=== PATIENT | female | born 1935 | race Hispanic/Latino ===

== ENCOUNTER 2020-02-20 18:55 | Emergency (ER) | payer OTHER ==
--- OUTSIDE RECORDS SUMMARY | 2020-02-20 19:45 | XMS REPORT | Clinical Summary ---
:1935 Author Organization [facility] Address [address] [place] [address] Care Team Providers Name Role Phone Enma Woody Primary Care Provider Allergies Active Allergy Reactions Severity Noted Date Comments Iodine Itching Medium 09/16/2016 Extreme itching and swelling to the eyes Penicillins Hives Medium 09/16/2016 Itching; hives (neck, arms, face) Medications Medication Sig Dispensed Refills Start Date End Date Status metoprolol tartrate Take 100 mg by 0 Active (LOPRESSOR) 100 mg mouth 2 (two) tablet times a day. alendronate (FOSAMAX) Take 70 mg by 0 Active 70 MG tablet mouth every 7 days. Take in the morning with a full glass of water, on an empty stomach, and do not take anything else by mouth or lie down for the next 30 min. pramipexole (MIRAPEX) Take 0.25 mg by 0 Active 0.25 MG tablet mouth daily. gabapentin (NEURONTIN) Take 100 mg by 0 Active 100 mg capsule mouth 3 (three) times a day. traMADol (ULTRAM) 50 Take 50 mg by 0 Active mg tablet mouth every 8 (eight) hours as needed for moderate pain. dexlansoprazole Take 60 mg by 0 Active (DEXILANT) 60 mg mouth daily. capsule ZENPEP 40,000-126,000- THERESE 8 (OCHO) 5 04/27/2019 Active 168,000 unit C?PSULAS POR LA capsule,delayed BOCA CADA RUSSELL release(DR/EC) losartan-hydrochloroth Take 1 tablet 1 05/04/2019 Active iazide (HYZAAR) by mouth daily. 50-12.5 mg per tablet hydrocodone/acetaminop Take by mouth. 0 Active hen (VICODIN ORAL) fenofibrate micronized Take 130 mg by 0 Active (ANTARA) 130 MG mouth daily capsule before breakfast. diltiazem CD (CardIZEM Take 1 capsule 90 capsule 3 05/31/2019 05/30/2020 Active CD) 120 MG 24 hr (120 mg total) capsuleIndications: by mouth daily. Essential hypertension Additional Information Patient taking differently: 60 mg oral daily, Reported on 10/19/2019 1:15 PM magnesium oxide 400 mg Take 400 mg by 0 Active magnesium tablet mouth daily. clopidogreL (PLAVIX) 75 Take 75 mg by 0 Active mg tablet mouth daily. diltiazem (CardIZEM) 60 Take 60 mg by 0 Discontinued MG tablet mouth daily. 19 (Formul funmi change) clopidogrel (PLAVIX) 75 Take 75 mg by 0 Discontinued mg tablet mouth daily. 19 mometasone (NASONEX) 50 1 spray into 0 01/31 Discontinued mcg/actuation nasal each nostril 20 (Discontinued by spray daily. another cl inician) folic acid (FOLVITE) 1 Take 1 mg by 0 01/31 Discontinued MG tablet mouth daily. 20 (Discon tinued by another cl inician) predniSONE (DELTASONE) Take 1 tablet 2 tablet 0 06/07/20 50 mg tablet (50 mg total) 19 19 by mouth daily for 2 days. Take one tablet tonight and one tablet the day of exam diphenhydrAMINE Take 1 capsule 2 capsule 0 06/07/20 06/09/20 (BENADRYL) 50 MG (50 mg total) 19 19 capsule by mouth daily for 2 days. Take one capsule tonight and one capsule the day of exam Active Problems Problem Noted Date Malignant neoplasm of right lung 10/19/2019 Coronary artery disease involving [place] coronary galileo ry of [place] heart 09/20/2019 without angina pectoris Abdominal aortic aneurysm (AAA) without rupture 2018 Last Assessment & Plan: Patient with abdominal aortic aneurysm. The patient and I went over the anatomy related to this, risk factors, warning signs, and potential for rupture at any size. Discussed with the patient our gene ral practice to wait until 5.5 cm and th e reasoning behind that. Endovascular and open abdominal aortic aneurysm repair both discussed, described, and used a visual posters to help clarify. Major morb idity and mortality were both discussed. Open aortic complications including injury to nearby structures, sexual dysfunction, later abdominal surgical complications were all discussed. Endovascular co mplications including endoleak, persiste nt expansion or rupture, need for lifelong surveillance, and access site issues were discussed as well. We will contact her oncologist to determ ine the prognosis of her cancerous growth. Essential hypertension 09/16/2016 Routine adult health maintenance 09/16/2016 Encounters Date Type Specialty Care Team Description 10/19/2019 Hospital Encounter Radiology Felton Oliva MD 10/19/2019 Office Visit Cardiovascular Felton Oliva Abdominal ao rtic MD Michael aneurysm (AAA) without rupture (HCC) (Primary Dx) 10/14/2019 Telephone Cardiovascular Levy Araujo MD 10/13/2019 Orders Only Cardiothoracic ProviderRoman MD 09/29/2019 Hospital Encounter Radiology Antoine Vyas MD 09/29/2019 Office Visit Cardiothoracic Antoine Vyas Malignant torsten plasm Surgery MD Ryanne of lower lobe o f right lung (HCC ) (Primary Dx) 09/29/2019 Telephone Cardiovascular Felton Oliva MD 09/29/2019 Telephone [employer] Josep Ortiz 09/29/2019 Oncology Oncology Hair, Padilla Daley, MORTEZA 09/28/2019 Orders Only Cardiothoracic Roman Gamble MD 09/27/2019 Telephone Cardiothoracic Sherri Henderson Surgery MA 09/20/2019 Office Visit Cardiology Chandan Cervantes, Abdominal a ortic aneurysm (AAA) without rupture (HCC) (Primary Dx); Essential hyper tension; Coronary artery disease involving [place] coronary artery of [place] heart without angina pectoris 06/15/2019 Office Visit Cardiovascular Felton Oliva Thoracic aor levi Rodriguez MD aneurysm withou t rupture (HCC) (Primary Dx) 06/14/2019 Telephone Cardiology Eddie Singh MA Results (CTA abdomen pelvis) 06/08/2019 Hospital Encounter Radiology Chandan Cervantes, Aneur ysm (HCC); Abdominal aorti c aneurysm (AAA) without rupture (HCC); Essential hyper tension 06/07/2019 Orders Only Cardiology Eddie Singh MA 05/31/2019 Office Visit Cardiology Chandan Cervantes, Abdominal a ortic aneurysm (AAA) without rupture (HCC) (Primary Dx); Aneurysm (HCC); Essential hyper tension after 02/19/2019 Family History Medical History Relation Name Comments Heart disease Brother Heart disease Father Relation Name Status Comments Brother Father Social History Tobacco Use Types Packs/Day Years Used Date Never Smoker Smokeless Tobacco: Never Used Tobacco Cessation: Counseling Given: No Alcohol Use Drinks/Week oz/Week Comments No Sex Assigned at Date Recorded Not on file Job Start Date Occupation Industry Not on file Not on file Not on file Travel History Travel Start Travel End No recent travel history available. Last Filed Vital Signs Vital Sign Reading Time Taken Comments Blood Pressure 161/84 10/19/2019 12:59 PM [employer] Pulse 67 10/19/2019 12:59 PM [employer] Temperature 36.9 C (98.4 F) 10/19/2019 12:59 PM [employer] Respiratory Rate 17 09/29/2019 9:56 AM [employer] Oxygen Saturation - - Inhaled Oxygen Concentration - - Weight 68.7 kg (151 lb 6.4 oz) 10/19/2019 12:59 PM [employer] Height 152.4 cm (5') 10/19/2019 12:59 PM [employer] Body Mass Index 29.57 10/19/2019 12:59 PM [employer] Plan of Treatment Date Type Specialty Care Team Description 03/20/2020 Office Visit Cardiology Chandan Cervantes MD [address] [facility] [address] [place], [place] [address] [phone] Health Maintenance Due Date Last Done Comments SHINGLES VACCINES (#1) 1986 65+ PNEUMOCOCCAL VACCINE (1 of 2 - PCV13) 2001 INFLUENZA VACCINE 04/14/2020 Procedures Procedure Name Priority Date/Time Associated Diagnosis Comme nts MRI HEAD EXTERNAL Routine 2019 5:20 Result s for this STUDY PM [employer] procedure are i n the results section. [id number] Routine 08/02/2019 PULMONARY FUNCTION Routine 07/25/[address] WHOLE BODY Routine 07/14/2019 8:51 Result s for this EXTERNAL STUDY AM CDT procedure are in the results section. PET CT SKULL BASE Routine 07/14/2019 TO MID THIGH [id number] Routine 06/09/2019 CT CARDIAC OVERREAD STAT 06/08/2019 4:30 Aneurysm (H CC) Results for this PM CDT Abdominal aortic procedure a re in aneurysm (AAA) the results without rupture (HCC) section. Essential hypertension CV CTA ABDOMEN STAT 06/08/2019 1:46 Aneurysm (HCC) Results for this PELVIS W CONTRAST PM CDT Abdominal aortic proced ure are in aneurysm (AAA) the results without rupture (HCC) section. Essential hypertension ESTIMATED GFR Routine 06/08/2019 1:01 Results fo r this PM CDT procedure are i n the results section. POC CREATININE Routine 06/08/2019 1:01 Results f or this PM CDT procedure are i n the results section. ECG 12-LEAD Routine 05/31/2019 2:46 Aneurysm (HCC) Results f or this PM CDT procedure are i n the results section. after 02/19/2019 Results MRI Head External Study (2019 5:20 PM [employer]) Specimen Narrative Performed At This exam was not acquired at a [facility] facility and has not been [facility] interpreted by a [facility] Provider. T he exam was imported into our imaging system. Performing Organization Address City/[facility] Phone Number [facility] [address] [place] [address] Miscellaneous Lab Result (08/02/2019)Only the most recent of2 resultswithin the time period is included. Specimen Blood Narrative Performed At This result has an attachment that is no t available. Pulmonary function tests, complete (07/25/2019) Narrative Performed At This result has an attachment that is no t available. PET/CT Whole Body External Study (07/14/2019 8:51 AM CDT) Specimen Narrative Performed At This exam was not acquired at a [facility] facility and has not been [facility] interpreted by a [facility] Provider. T he exam was imported into our imaging system. Performing Organization Address City[facility] Phone Number [facility] [address] [place] [address] PET/CT Skull Base To Mid Thigh (07/14/2019) Narrative Performed At This result has an attachment that is no t available. CT Cardiac Overread (06/08/2019 4:30 PM CDT) Specimen Narrative Performed At EXAMINATION: CT CARDIAC OVERREAD [facility] CLINICAL HISTORY: Radiology overread of imaging perfor med in the cardiology department. Only extracardiac structures ar e assessed. I72.9 Aneurysm of unspecified site, I71.4 Abdominal aortic a neurysm without rupture, other TECHNIQUE: Please refer to cardiology note for details on the acquisition technique. COMPARISON: None. FINDINGS: Extracardiac findings: Lungs and airways: A 1.9 cm nodule is present in the r ight lower lobe centered on image 152 of series 10. An ill-defined violeta undglass nodules present in the right upper lobe, centered on image 17, measuring approximately 1.6 cm. There is scattered linear scarring throughout the lung bases. There are extensiv e, multicompartment tracheal diverticula, greatest at the upper thoracic inlet. Pleura: No pleural effusion or pneumotho rax. Mediastinum and lymph nodes: Mildly asymmetric but sub centimeter right hilar lymph nodes are present. Upper abdomen: No suspicious abnormaliti es. Musculoskeletal: There is heterogenous sclerosis and h eight loss of T7 and T9. Height loss without underlying sclerosis of T1 2. Demineralized bones. Please refer to separately dictated cardiology report for cardiac and vascular findings. IMPRESSION: 1.Suspicious 1.9 cm nodule is present in the right low er lobe. Recommend PET/CT, tissue sampling, or short interval (3 month) C T follow-up depending on the clinical scenario and p atient and provider preferences. 2.Indeterminate ill-defined groundglass nodule in the right upper lobe could be inflammatory but requires atten tion at follow-up. 3.Indeterminate mildly asymmetric but subcentimeter ri ght hilar lymph nodes. 4.Heterogenous sclerosis and age-indeterminate height loss of T7 and T9. The underlying sclerosis raises the possibility of the se being pathologic fractures. Consider thoracic spine MRI for further evaluation. 5.Please refer to separately dictated cardiology repor t for vascular findings. Procedure Note Hm Interface, Radiology Results Incoming - 06/13/2019 12:45 PM CDT EXAMINATION: CT CARDIAC OVERREAD CLINICAL HISTORY: Radiology overread of imaging performed in the cardiology department. Only extracardiac structures are assessed. I72.9 Aneurysm of unspecified site, I71.4 Abdominal aortic aneurysm without rupture, other TECHNIQUE: Please refer to cardiology no te for details on the acquisition technique. COMPARISON: None. FINDINGS: Extracardiac findings: Lungs and airways: A 1.9 cm nodule is pr esent in the right lower lobe centered on image 152 of series 10. An ill-defined groundglass nodules present in the right upper lobe, centered on image 17, measuring approximately 1.6 cm. There is scattered linear scarring throughout the lung bases. Ther e are extensive, multicompartment tracheal diverticula, greatest at the upper thoracic inlet. Pleura: No pleural effusion or pneumotho rax. Mediastinum and lymph nodes: Mildly asym metric but subcentimeter right hilar lymph nodes are present. Upper abdomen: No suspicious abnormaliti es. Musculoskeletal: There is heterogenous s clerosis and height loss of T7 and T9. Height loss without underlying sclerosis of T12. Demineralized bones. Please refer to separately dictated card iology report for cardiac and vascular findings. IMPRESSION: 1.Suspicious 1.9 cm nodule is present in the right lower lobe. Recommend PET/CT, tissue sampling, or short interval (3 month) CT follow-up depending on the clinical scenario and patient and provider preferences. 2.Indeterminate ill-defined groundglass nodule in the right upper lobe could be inflammatory but requires attention at follow-up. 3.Indeterminate mildly asymmetric but murillo bcentimeter right hilar lymph nodes. 4.Heterogenous sclerosis and age-indeter minate height loss of T7 and T9. The underlying sclerosis raises the possibility of these being pathologic fractures. Consider thoracic spine MRI for further evaluation. 5.Please refer to separately dictated ca rdiology report for vascular findings. Performing Organization Address City/State/Zipcode Phone Number [facility] [address] [place] [address] Cv cta abdomen pelvis w contrast (06/08/2019 1:46 PM CDT) Specimen Narrative Performed At [facility] CT [address] [place] [address], [facility] [address] [id number] CTA Coron funmi Arteries Report Pat.Name: NATHALIA AGUILAR Pat.ID: [id number] .Date: 06/08/2019 Exam Time: 1:04:00 PM Study Type:CTA Coronary Arteries Height: 62in Weight: 155lb BSA: 1.72 m2 Age: 2 1935,83Y Sex: FEMALE BP: 181/75 HR: 59 bpm Nuclear Tech:ANGELINE Campa/MUSA Kahn Pat. Stat.:Outpatient CPT - 4: CCTA w Thoracic Aorta (Non Congenital) [id number], CTA ABD/PELV W/WO [id number], CTA Chest non coron funmi [id number] Nuclear Event ID:[id number] Order ID: [id number] Reason for Study:CAD, AAA Procedures: CT Prospective (intervals), CT Flash mode Race: SUMMARY: Technique: IV contrast was administered and sequential 0.[address] cuts were obtained through the chest using th e Siemens Somatom Force CT scanner. Image post-processing consistin g of multiplanar and 3D reconstructions were performed using the [employer] workstation. Interactive image viewing, volumetric display and analysis were also performed. CTA RESULTS Left Main: A normal sized artery which arises chris lly from the left sinus of Valsalva and divides into the left anter ior descending and circumflex coronary arteries. Mild calcified athero sclerotic plaque is present but without significant stenosis. Left anterior descending (LAD): A normal sized artery which wraps around the apex and gives off one diagonal branch. Mild calcified atherosc lerotic plaque is present in the proximal and mid segments but withou t significant stenosis. The first diagonal is a bifurcating galileo ry which has no significant atherosclerotic plaque present. Left circumflex: A small non-dominant artery which arises normally from the left main and gives off one large major obtuse mar ginal artery before terminating in the AV groove. Mild calci fied atherosclerotic plaque is present in the proximal segment with but without significant stenosis. The first obtuse marginal is a large art dimitri which has mild calcified atherosclerotic plaque present but no si gnificant stenosis. Right coronary artery: A normal sized dominant artery which tristan ses normally from the right sinus of Valsalva and gives off several right ventricular branches, the posterior descending artery and the posterolateral artery. Moderate calcified and non-calcified ath erosclerotic plaque is present in the proximal, mid and distal segments with mild to moderate (25-50%) stenosis in the mid segment. The posterior descending artery which pillai s mild non-calcified atherosclerotic plaque present but no si gnificant stenosis. The posterolateral is a trifurcating art dimitri which has mild calcified and non-calcified atherosclerotic plaque present but no significant stenosis. Ramus: None. Stents: None. Bypass Grafts: None. Pulmonary Arteries: Normal pulmonary artery sizes with no pr oximal thrombus identified. Left Atrial and Pulmonary Vein Dimension s: Left atrial size (A-P diameter) 3.8 cm. Normal PV anatomy There is no evidence of the left atrial appendage clot. Left Ventricular Valve Morphology/Functi on: There is mild mitral annular calcificati on. Thoracic Aortic Dimensions: No aortic dissection is seen. Moderate a therosclerotic of the entire descending thoracic aorta. Aortic root 3.1 cm. Sinotubular junction 2.7 cm. Mid ascending aorta 3.5 cm. Distal ascending aorta 3.2 cm. Aortic arch 2.9 cm. There is normal ta keoff of the great vessels and no significant stenosis in the proximal visualized segments. Aortic Isthmus 3.6 cm. Proximal descending thoracic aorta 2.6 c m. Distal descending/suprarenal abdominal a kate has a saccular aneurysm with a maximal dimension of 6.7 cm, the aneurysm length spans 6.1 cm. Supra-renal abdominal aorta: 2.2 cm with mild calcified atherosclerotic plaque but no significan t stenosis. Celiac trunk: moderate calcified at herosclerotic plaque but no significant stenosis Superior mesenteric artery: moderate calcified atherosclerotic plaque but without significant stenosis. Juxta-renal aorta: 1.5 cm. Right renal artery: no significant st enosis. Left renal artery: no significant nettie nosis. Infrarenal aorta: 1.4 cm with moderate c alcified and non-calcified atherosclerotic plaque but without signi ficant stenosis Inferior mesenteric artery: no signif icant stenosis. Aortic Bifurcation Left Lower Extremity Left common iliac is a 13 mm artery [facility] has moderate calcified atherosclerotic plaque present with mild (<50%) stenosis. Left external iliac is a 7.5 mm artery which has mild calcified atherosclerotic plaque present but with no significant stenosis. Left internal iliac is a 8.0 mm artery which has mild calcified and non-calcified atherosclerotic plaque pre sent but with no significant stenosis. Left femoral is a a 7.5 mm artery i ch has mild calcified and non-calcified atherosclerotic plaque pre sent but with no significant stenosis. Left superficial femoral is a 5.5 mm ar dinora which has no significant atherosclerotic plaque present. Right Lower Extremity Right common iliac is a 9.5 mm artery which has moderate calcified atherosclerotic plaque present with mild (<50%) proximal stenosis. Right external iliac is a 8.5 mm artery which has no significant atherosclerotic plaque present. Right internal iliac is a 7.0 mm artery which has mild calcified and non-calcified atherosclerotic plaque pre sent but with no significant stenosis. Right femoral is a a 9.0 mm artery wh ich has mild calcified atherosclerotic plaque present but with no significant stenosis. Right superficial femoral is a 5.5 mm a rtery which has mild calcified atherosclerotic plaque present but with no significant stenosis. Pericardium: No pericardial effusion or pericardial t hickening. Non-Cardiac Findings: 16x16 mm noncalcified nodule of the righ t lower lobe of the lung. Bibasilar atelectasis. CONCLUSION Coronary CTA shows moderate coronary ath erosclerosis with mild to moderate (25-50%) stenosis in the mid RC A. Distal descending/suprarenal abdominal a kate has a saccular aneurysm with a maximal dimension of 6.7 cm, the aneurysm length spans 6.1 cm terminating at the suprarenal aorta 2.2 cm proximal to the takeoff of the celiac artery. 16x16 mm noncalcified nodule of the righ t lower lobe of the lung. Recommend dedicated imaging. STUDY QUALITY The study quality is good. COMMENTS None. FINDINGS: Signed 06/08/2019 05:08 PM Toni Ornelas MD Procedure Note Interface, Radiology Results In - 2018 5:08 PM CDT Nuclear Cardiology and Cardiac CT [address] [place] [address] CTA Coronary Arteri es Report Pat.Name: NATHALIA AGUILARI D: [id number] St.Date: 06/08/2019 Exam Time: 1:04:00 PM Study Type:CTA Coronary Arteries Heigh t: 62in Weight: 155lb BSA: 1.72 m2 Age: 2 1935,83Y Sex: FEMALE BP: 181/75 HR: 59 bpm Nuclear Tech:ANGELINE Campa/Suni Ca migue, ARRT Pat. Stat.:Outpatient CPT - 4: CCTA w Thoracic Aorta (NonCo ngenital) [id number], CTA ABD/PELV W/WO 16434, CTA Chest non coron funmi [id number] Nuclear Event ID:[id number] Order ID: [id number] Reason for Study:CAD, AAA Procedures: CT Prospective (intervals), CT Flash mode Race: SUMMARY: Technique: IV contrast was administered and sequential 0.[address] cuts were obtained through the chest using th e Siemens Somatom Force CT scanner. Image post-processing consistin g of multiplanar and 3D reconstructions were performed using the [employer] workstation. Interactive image viewing, volumetric display and analysis were also performed. CTA RESULTS Left Main: A normal sized artery which arises chris lly from the left sinus of Valsalva and divides into the left anter ior descending and circumflex coronary arteries. Mild calcified athero sclerotic plaque is present but without significant stenosis. Left anterior descending (LAD): A normal sized artery which wraps around the apex and gives off one diagonal branch. Mild calcified atherosc lerotic plaque is present in the proximal and mid segments but withou t significant stenosis. The first diagonal is a bifurcating galileo ry which has no significant atherosclerotic plaque present. Left circumflex: A small non-dominant artery which arises normally from the left main and gives off one large major obtuse mar ginal artery before terminating in the AV groove. Mild calci fied atherosclerotic plaque is present in the proximal segment with but without significant stenosis. The first obtuse marginal is a large art dimitri which has mild calcified atherosclerotic plaque present but no si gnificant stenosis. Right coronary artery: A normal sized dominant artery which tristan ses normally from the right sinus of Valsalva and gives off several right ventricular branches, the posterior descending artery and the posterolateral artery. Moderate calcified and non-calcified ath erosclerotic plaque is present in the proximal, mid and distal segments with mild to moderate (25-50%) stenosis in the mid segment. The posterior descending artery which pillai s mild non-calcified atherosclerotic plaque present but no si gnificant stenosis. The posterolateral is a trifurcating art dimitri which has mild calcified and non-calcified atherosclerotic plaque present but no significant stenosis. Ramus: None. Stents: None. Bypass Grafts: None. Pulmonary Arteries: Normal pulmonary artery sizes with no pr oximal thrombus identified. Left Atrial and Pulmonary Vein Dimension s: Left atrial size (A-P diameter) 3.8 cm. Normal PV anatomy There is no evidence of the left atrial appendage clot. Left Ventricular Valve Morphology/Functi on: There is mild mitral annular calcificati on. Thoracic Aortic Dimensions: No aortic dissection is seen. Moderate a therosclerotic of the entire descending thoracic aorta. Aortic root 3.1 cm. Sinotubular junction 2.7 cm. Mid ascending aorta 3.5 cm. Distal ascending aorta 3.2 cm. Aortic arch 2.9 cm. There is normal charo eoff of the great vessels and no significant stenosis in the proximal visualized segments. Aortic Isthmus 3.6 cm. Proximal descending thoracic aorta 2.6 c m. Distal descending/suprarenal abdominal a kate has a saccular aneurysm with a maximal dimension of 6.7 cm, the aneurysm length spans 6.1 cm. Supra-renal abdominal aorta: 2.2 cm with mild calcified atherosclerotic plaque but no significan t stenosis. Celiac trunk: moderate calcified athe rosclerotic plaque but no significant stenosis Superior mesenteric artery: moderate c alcified atherosclerotic plaque but without significant stenosis. Juxta-renal aorta: 1.5 cm. Right renal artery: no significant nettie nosis. Left renal artery: no significant sten osis. Infrarenal aorta: 1.4 cm with moderate c alcified and non-calcified atherosclerotic plaque but without signi ficant stenosis Inferior mesenteric artery: no signifi cant stenosis. Aortic Bifurcation Left Lower Extremity Left common iliac is a 13 mm artery whi ch has moderate calcified atherosclerotic plaque present with mild (<50%) stenosis. Left external iliac is a 7.5 mm artery which has mild calcified atherosclerotic plaque present but with no significant stenosis. Left internal iliac is a 8.0 mm artery which has mild calcified and non-calcified atherosclerotic plaque pre sent but with no significant stenosis. Left femoral is a a 7.5 mm artery whic h has mild calcified and non-calcified atherosclerotic plaque pre sent but with no significant stenosis. Left superficial femoral is a 5.5 mm ar dinora which has no significant atherosclerotic plaque present. Right Lower Extremity Right common iliac is a 9.5 mm artery w hich has moderate calcified atherosclerotic plaque present with mild (<50%) proximal stenosis. Right external iliac is a 8.5 mm artery which has no significant atherosclerotic plaque present. Right internal iliac is a 7.0 mm artery which has mild calcified and non-calcified atherosclerotic plaque pre sent but with no significant stenosis. Right femoral is a a 9.0 mm artery whi ch has mild calcified atherosclerotic plaque present but with no significant stenosis. Right superficial femoral is a 5.5 mm a rtery which has mild calcified atherosclerotic plaque present but with no significant stenosis. Pericardium: No pericardial effusion or pericardial t hickening. Non-Cardiac Findings: 16x16 mm noncalcified nodule of the righ t lower lobe of the lung. Bibasilar atelectasis. CONCLUSION Coronary CTA shows moderate coronary ath erosclerosis with mild to moderate (25-50%) stenosis in the mid RC A. Distal descending/suprarenal abdominal raman love has a saccular aneurysm with a maximal dimension of 6.7 cm, the aneurysm length spans 6.1 cm terminating at the suprarenal aorta 2.2 cm proximal to the takeoff of the celiac artery. 16x16 mm noncalcified nodule of the righ t lower lobe of the lung. Recommend dedicated imaging. STUDY QUALITY The study quality is good. COMMENTS None. FINDINGS: Signed 06/08/2019 05:08 PM Toni Ornelas MD Performing Organization Address City/State/Zipcode Phone Number [facility] [phone] [place] [address] Estimated GFR (06/08/2019 1:01 PM CDT) Estimated GFR 47 (A) mL/min/1.73 [facility] Comment: HOSPITAL Catergory Units Interpretation G1 >=90 Normal or high G2 60-89 Mildly decreased G3a 45-59 Mildly to moderately decreas ed G3b 30-44 Moderately to severely decre ased G4 15-29 Severely decreased G5 <15 Kidney failure The eGFR was calculated using the Chronic Kidney Disea se Epidemiology Collaboration (CKD-EPI) equation. Interpretation is based on recommendations of the National Kidney Foundation-Kidney Disease Outcomes Tera lity Initiative (NKF-KDOQI) published in 2014. Specimen Blood Performing Organization Address City/State/Zipcode Phone Number [facility] DEPARTMENT OF PATHOLOGY AND [address] [place] [address] [phone] [address] POC creatinine (06/08/2019 1:01 PM CDT) POC creatinine 1.1 (H) 0.5 - 0.9 mg/dl [facility] Comment: HOSPITAL Meter ID: [id number] Take Away Worker: Anshul Fields Specimen Blood Performing Organization Address [facility]/Zipcode Phone Number [facility] DEPARTMENT OF PATHOLOGY AND [address] [place], [place] [phone] [facility] [address] [place] [address] ECG 12 lead (05/31/2019 2:46 PM CDT) Pathologist Sig nature Ventricular rate 56 [facility] Atrial rate 56 [facility] [place] interval 218 [facility] QRSD interval 84 [facility] QT interval 440 [facility] QTC interval 424 [facility] P axis 1 55 [facility] QRS axis 1 -1 [facility] T wave axis 46 [facility] EKG impression Sinus bradycardia with [facility] 1st degree AV block-Otherwise normal ECG-In automated comparison with ECG of 16-SEP-2016 11:17,-No significant change was found- Specimen Narrative Performed At This result has an attachment that is no t available. Performing Organization Address [facility]/Zipcode Phone Number [facility] MUSE [address] [place] [address] after 02/19/2019 Insurance Payer Benefit Plan / Subscriber ID Effective Dates Phone Addre ss Type Group MEDICARE MEDICARE PART A xxxxxxxxxxx 2004-Present [facility] [place] Medicare AND B MEDICAID MEDICAID xxxxxxxxx 2011-Present Med icaid Advance Directives For more information, please contact: [phone] Type Date Recorded Patient Community Manager Explanati on Advance Directives, Living Will and Medical Power of Rail Crew Member
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
--- OUTSIDE RECORDS SUMMARY | 2020-02-20 19:46 | XMS REPORT ---
:1935 Author Organization eClinicalWorks Care Team Providers Name Role Phone Woody, Na Provider Role Unavailable Allergies, Adverse Reactions, Alerts Substance Reaction Event Type penicillin Info Not Available Drug Allergy Iodine Info Not Available Drug Allergy Problems Problem Type Condition Code Onset Dates Condition Statu s Assessment Neuropathy G62.9 Active Assessment Hypomagnesemia E83.42 Active Assessment Hypertension I10 Active Assessment Mixed hyperlipidemia E78.2 Active Problem Osteoporosis M81.0 Active Problem GERD (gastroesophageal reflux K21.9 Active disease) Problem Neuropathy G62.9 Active Problem Hypertension I10 Active Problem Seasonal allergic rhinitis due to J30.1 Active pollen Problem Chronic pancreatitis K86.1 Active Problem Hypomagnesemia E83.42 Active Problem Idiopathic peripheral neuropathy G60.9 Active Problem Cataract H26.9 Active Problem History of cerebrovascular Z86.73 A ctive accident Problem Chronic pain G89.29 Active Problem Malignant neoplasm of right lung, C34.91 Active unspecified part of lung Problem Incidental lung nodule R91.1 Activ e Problem Varicose vein I86.8 Active Problem 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 Active extremities with pain Assessment Osteopenia, unspecified location M85.80 Active Problem 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 shoulder Problem Abnormal electrocardiogram R94.31 A ctive Assessment Closed compression fracture of S22.000S Active thoracic vertebra, sequela Problem Pancreatic insufficiency K86.89 Act [place] Assessment AAA (abdominal aortic aneurysm) I71.4 Active without rupture Problem Stage 3 chronic kidney disease N18.3 Active Problem AAA (abdominal aortic aneurysm) I71.4 Active without rupture Problem Diverticulitis K57.92 Active Assessment Stage 3 chronic kidney disease N18.3 Active Problem Chronic renal disease N18.9 Active Assessment Pancreatic insufficiency K86.89 Act [place] Problem Abdominal aortic aneurysm I71.4 Ac tive Assessment Hypokalemia E87.6 Active Problem Diverticulosis of colon K57.30 Acti ve Assessment Hiatal hernia K44.9 Active Problem Mixed hyperlipidemia E78.2 Active Assessment Diarrhea, unspecified type R19.7 A ctive Problem Muscle cramps R25.2 Active Assessment Malignant neoplasm of right lung, C34.91 Active unspecified part of lung Problem Restless leg syndrome G25.81 Active Problem Depression with anxiety F41.8 Acti ve Problem Osteoarthritis M19.90 Active Medications Medication Code Code Instructions Start End Status Dosage System Date Date Dexilant [facility] 23169704728 60 MG Active TOME LUNA CAPSULA POR VIA ORAL [place] Losartan [facility] 13501787185 50-12.5 MG Active TAKE 1 Potassium-HCTZ TABLET BY MOUTH EVERY DAY Magnesium Oxide [facility] 79383185889 400 MG Orally Active 1 tablet as once a day needed Gabapentin ND 70286594777 100 MG Active TOME LUNA CAPSULA [place] Metoprolol ND 39830529893 100 MG Orally Active 1 t ablet Tartrate Twice a day with food Hyzaar [facility] 00075338989 50-12.5 MG Active 1 tablet Orally Once a day Plavix [facility] 69216376693 75 MG Orally Active 1 table t Once a day Cardizem [facility] 27148941364 60 MG Active TOME LUNA TABLETA POR VIA ORAL [place] Pramipexole [facility] 11033034372 0.25 MG Active TOME LUNA Dihydrochloride TABLETA POR VIA ORAL AL ACOSTARSE Neurontin [facility] 24885843256 100 MG Orally Active 1 ca psule Once a day Mirapex ND 02454134388 0.25 MG Orally Active 1 tab let Once a day before bedtime Clonidine HCl ND 35284046743 0.1 MG Orally Active 1 tablet at three times a bedtime day Cardizem [facility] 83849199403 60 MG Active TOME [place] TABLETA POR VIA ORAL [place] Alendronate Sodium [facility] 69776774686 70 MG Orally Acti ve 1 tablet once a week Anoro Ellipta [facility] 31080422174 62.5-25 MCG/INH Nov 04January Active 1 puff Inhalation Once 2019, a day [address] [facility] 99279888130 100 MG Active TAKE 1 CAPSULE BY MOUTH ONCE EVERY DAY Zenpep [facility] 11677310422 5000-79131 UNIT Active as d irected Orally three times a day with meals and 1 capsule with snacks Magnesium Oxide [facility] 28663361342 400 MG Orally Active 1 tablet as twice a day needed Plavix [facility] 89194311312 75 MG Active TOME LUNA TABLETA POR VIA ORAL [place] Alendronate Sodium [facility] 37944788120 70 MG Active T OME LUNA TABLETA POR VIA ORAL LUNA VEZ POR SEMANA Metoprolol [facility] 64997355927 100 MG Active TAKE 1 Tartrate TABLET BY MOUTH TWO TIMES DAILY Neurontin ND 92474918472 100 MG Orally Active 1 ca psule Once a day Flonase [facility] 68202451875 50 MCG/DOSE Active 2 spray in Nasally Once a each day nostril Hyzaar [facility] 19161574706 50-12.5 MG Active 1 tablet Orally Once a day Zenpep [facility] 32354269134 96141-335619 Active 2 capsu les UNIT with breakfast, lunch and dinnner and 1 capsule with snacks Pancrelipase [facility] 85683882889 5000 UNIT Active not d efined (Abt-Bnde-Gyub) Orally Results No Known Results Summary Purpose eClinicalWorks Submission
--- OUTSIDE RECORDS SUMMARY | 2020-02-20 19:46 | XMS REPORT ---
:1935 Author Organization eClinicalWorks Care Team Providers Name Role Phone Woody, Na Provider Role Unavailable Allergies No Known Allergies Problems Problem Type Condition Code Onset Dates Condition Statu s Problem Osteoporosis M81.0 Active Problem GERD (gastroesophageal reflux K21.9 Active disease) Problem Neuropathy G62.9 Active Problem Hypertension I10 Active Problem Seasonal allergic rhinitis due to J30.1 Active pollen Problem Chronic pancreatitis K86.1 Active Problem Hypomagnesemia E83.42 Active Problem Idiopathic peripheral neuropathy G60.9 Active Problem Cataract H26.9 Active Problem History of cerebrovascular accident Z86.73 Active Problem Chronic pain G89.29 Active Problem Malignant neoplasm of right lung, C34.91 Active unspecified part of lung Problem Incidental lung nodule R91.1 Activ e Problem Varicose vein I86.8 Active Problem 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 Active extremities with pain Problem 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 shoulder Problem Abnormal electrocardiogram R94.31 A ctive Problem Pancreatic insufficiency K86.89 Act [place] Problem Stage 3 chronic kidney disease N18.3 Active Problem AAA (abdominal aortic aneurysm) I71.4 Active without rupture Problem Diverticulitis K57.92 Active Problem Chronic renal disease N18.9 Active Problem Abdominal aortic aneurysm I71.4 Ac tive Problem Diverticulosis of colon K57.30 Acti ve Problem Mixed hyperlipidemia E78.2 Active Problem Muscle cramps R25.2 Active Problem Restless leg syndrome G25.81 Active Problem Depression with anxiety F41.8 Acti ve Problem Osteoarthritis M19.90 Active Medications Medication Code Code Instructions Start End Date Status Dosage System Date [facility] [id number] Active 2 capsu les UNIT with breakfast, lunch and dinnner and 1 capsule with snacks Results No Known Results Summary Purpose eClinicalWorks Submission
[2020-02-20] MEDS ORDERED: MORPHINE 2 MG/ML SYR ONE (20:54)
[2020-02-20] MEDS ORDERED: ONDANSETRON 4 MG/2 ML VIAL ONE (20:54)
[2020-02-20] MEDS ORDERED: FAMOTIDINE 20 MG/2 ML VIAL IV ONE (20:54)
[2020-02-20 20:56] LABS: Absolute Lymphocytes (CBC) 1.9 K/uL (0.7-4.9); Basophils % 1.2 % (0-1.3); Hematocrit 38.6 % (36.0-45.0); MPV 7.8 fL (7.6-11.3); RBC Red Blood Cell Count 4.32 M/uL (3.86-4.86)
[2020-02-20 21:16] LABS: Albumin 3.4 g/dL (3.4-5.0); Bilirubin Direct 0.1 mg/dL (0-0.2); Bilirubin Total 0.3 mg/dL (0.2-1.0); Potassium 3.7 mmol/L (3.5-5.1); Protein, Total 7.8 g/dL (6.4-8.2)
[2020-02-20 21:18] LABS: Urine Blood 1+ (NEG); Urine Glucose NEGATIVE (NEG); Urine Protein NEGATIVE (NEG)
[2020-02-20 21:30] LABS: Urine Bacteria 20-50 /HPF (<20); Urine Culture Reflex Order NOT NEEDED; Urine Mucus 1+ /HPF (NONE SEEN)
[2020-02-21] MEDS ORDERED: levoFLOXacin 500 MG TAB ONE (00:22)
--- NOTE | 2020-02-21 00:27 | EDPHYS ---
Physician Documentation [facility] Name: Adrián Mak Age: 84 yrs Sex: Female : 1935 Arrival Date: 02/20/2020 Time: 18:59 Bed 14 Private MD: ED Physician Paul Vazquez HPI: 02/19 20:50 This 84 yrs old Female presents to ER via Wheelchair with complaints of mh7 Abdominal Pain, Diarrhea. 20:50 The patient presents to the emergency department with diarrhea, that is intermittent, 5 mh7 times since yesterday, abdominal pain, of the left upper quadrant, described as intermittent, vague,\E\ waxing and waning, and does not radiate. Onset: The symptoms/episode began/occurred yesterday. Possible causes: unknown. The symptoms are aggravated by nothing. The symptoms are alleviated by nothing. Associated signs and symptoms: Pertinent positives: diarrhea, nausea, Pertinent negatives: anorexia, belching, constipation, dysuria, fever, flatulence, GI bleeding, hematuria, vaginal discharge, vomiting. Severity of symptoms: At their worst the symptoms were moderate today, in the emergency department the symptoms have improved moderately. Historical: - Allergies: 19:14 PENICILLINS; ss - Immunization history:: Adult Immunizations up to date. - Social history:: Smoking status: Patient denies any tobacco usage or history of. ROS: 20:50 Constitutional: Negative for fever, chills, and weight loss, Eyes: Negative for injury, mh7 pain, redness, and discharge, ENT: Negative for injury, pain, and discharge, Neck: Negative for injury, pain, and swelling, Cardiovascular: Negative for chest pain, palpitations, and edema, Respiratory: Negative for shortness of breath, cough, wheezing, and pleuritic chest pain, Back: Negative for injury and pain, : Negative for injury, bleeding, discharge, and swelling, MS/Extremity: Negative for injury and deformity, Skin: Negative for injury, rash, and discoloration, Neuro: Negative for headache, weakness, numbness, tingling, and seizure, Psych: Negative for depression, anxiety, suicide ideation, homicidal ideation, and hallucinations, Allergy/Immunology: Negative for hives, rash, and allergies, Endocrine: Negative for neck swelling, polydipsia, polyuria, polyphagia, and marked weight changes, Hematologic/Lymphatic: Negative for swollen nodes, abnormal bleeding, and unusual bruising. Exam: 20:50 Constitutional: This is a well developed, well nourished patient who is awake, alert, mh7 and in no acute distress. Head/Face: Normocephalic, atraumatic. Eyes: Pupils equal round and reactive to light, extra-ocular motions intact. Lids and lashes normal. Conjunctiva and sclera are non-icteric and not injected. Cornea within normal limits. Periorbital areas with no swelling, redness, or edema. Neck: Trachea midline, no thyromegaly or masses palpated, and no cervical lymphadenopathy. Supple, full range of motion without nuchal rigidity, or vertebral point tenderness. No Meningismus. Chest/axilla: Normal chest wall appearance and motion. Nontender with no deformity. No lesions are appreciated. Cardiovascular: Regular rate and rhythm with a normal S1 and S2. No gallops, murmurs, or rubs. Normal PMI, no JVD. No pulse deficits. Respiratory: Lungs have equal breath sounds bilaterally, clear to auscultation and percussion. No rales, rhonchi or wheezes noted. No increased work of breathing, no retractions or nasal flaring. 20:50 Back: No spinal tenderness. No costovertebral tenderness. Full range of motion. Skin: Warm, dry with normal turgor. Normal color with no rashes, no lesions, and no evidence of cellulitis. MS/ Extremity: Pulses equal, no cyanosis. Neurovascular intact. Full, normal range of motion. Neuro: Awake and alert, GCS 15, oriented to person, place, time, and situation. Cranial nerves II-XII grossly intact. Motor strength 5/5 in all extremities. Sensory grossly intact. Cerebellar exam normal. Normal gait. Psych: Awake, alert, with orientation to person, place and time. Behavior, mood, and affect are within normal limits. 20:50 Abdomen/GI: Inspection: abdomen appears normal, Bowel sounds: normal, in all quadrants, Palpation: moderate abdominal tenderness, in the left upper quadrant, Rectal exam: the exam is deferred, because of patient request, Indicators: McBurney's point is not tender, Jolley's sign is negative, Rovsing's sign is negative, Obturator sign is negative, Psoas sign is negative, Liver: no appreciated palpable abnormalities, Hernia: not appreciated. 02/20 02:23 ECG was reviewed by the Attending Physician. [facility] Vital Signs: 02/19 19:10 BP 158 / 82; Pulse 64; Resp 16; Temp 97.7; Pulse Ox 99% on R/A; Weight 67.59 kg; Height ss 5 ft. 0 in. (152.40 cm); Pain 9/10; 21:36 BP 154 / 71; Pulse 52; Resp 18; Pulse Ox 100% ; ea 21:47 BP 154 / 71; Pulse 54; Resp 18; Pulse Ox 98% on R/A; ea 23:00 BP 182 / 85; Pulse 51; Resp 18; Temp 97.6(TE); Pulse Ox 99% on R/A; ea 02/20 00:20 BP 158 / 72; Pulse 55; Resp 16; Temp 97.6; Pulse Ox 98% on R/A; Pain 0/10; ea 02/19 19:10 Body Mass Index 29.10 (67.59 kg, 152.40 cm) ss MDM: 02/19 20:38 Patient medically screened. [facility] 02/20 00:23 Differential diagnosis: Nonspecific abd pain, gastritis, pancreatitis, diverticulitis. [facility] 00:23 Differential diagnosis: viral gastroenteritis, gastroenteritis. Data reviewed: vital [facility] signs, nurses notes, lab test result(s), CBC, electrolytes, urinalysis, EKG, radiologic studies, CT scan. Counseling: I had a detailed discussion with the patient and/or guardian regarding: the historical points, exam findings, and any diagnostic results supporting the discharge/admit diagnosis, the presence of at least one elevated blood pressure reading (>120/80) during this emergency department visit, lab results, radiology results, the need for outpatient follow up, to return to the emergency department if symptoms worsen or persist or if there are any questions or concerns that arise at home. 02:23 Data interpreted: Pulse oximetry: on room air is 98 %. Interpretation: normal. Response [facility] to treatment: the patient's symptoms have resolved after treatment, the patient's blood pressure is in an acceptable range, mental status has returned to baseline, the patient no longer shows bradycardia, the patient is not short of breath, the patient is not tachycardic, the patient's pain is gone, the patient's temperature has normalized. 02/19 20:14 Order name: Basic Metabolic Panel; Complete Time: 23:11 ea 02/19 20:14 Order name: CBC with Diff; Complete Time: 23:11 ea 02/19 20:14 Order name: Hepatic Function; Complete Time: 23:11 ea 02/19 20:14 Order name: Lipase; Complete Time: 23:11 ea 02/19 21:06 Order name: Urine Microscopic Only mg2 02/19 21:06 Order name: Urine Culture mg2 02/19 20:59 Order name: Abdomen EDMS 02/19 21:06 Order name: Urine Microscopic Only; Complete Time: 23:11 EDMS 02/19 21:06 Order name: Urine Culture EDMS 02/19 21:10 Order name: Urine Dipstick--Ancillary (enter results); Complete Time: 23:11 mt 02/19 20:14 Order name: IV Saline Lock; Complete Time: 20:44 ea 02/19 20:14 Order name: Labs collected and sent; Complete Time: 20:46 ea 02/19 20:22 Order name: Urine Dipstick-Ancillary (obtain specimen); Complete Time: 21:05 ea 02/19 20:54 Order name: EKG - Nurse/Tech; Complete Time: 21:05 mh7 EC:23 Rate is 53 beats/min. Rhythm is regular, Sinus bradycardia. QRS [place] is Normal. [place] mh7 interval is normal. QRS interval is normal. QT interval is normal. No Q waves. T waves are Normal. No ST changes noted. Clinical impression: Sinus bradycardia. Administered Medications: 02/19 20:56 Drug: Pepcid 20 mg Route: IVP; Site: right antecubital; ea 22:56 Follow up: Response: No adverse reaction ea 20:59 Drug: Zofran (Ondansetron) 4 mg Route: IVP; Site: right antecubital; ea 22:56 Follow up: Response: No adverse reaction ea 21:00 Drug: morphine 2 mg Route: IVP; Site: right antecubital; ea 02/20 00:18 Follow up: Response: No adverse reaction; Pain is decreased; RASS: Alert and Calm (0) ea 00:18 Drug: LevaQUIN 500 mg Route: PO; ea 00:40 Follow up: Response: Medication administered at discharge. ea Disposition: 02/21/20 00:26 Discharged to Home. Impression: Unspecified abdominal pain, Gastroenteritis, Urinary tract infection, site not specified. - Condition is Stable. - Discharge Instructions: Viral Gastroenteritis, Adult, Pouq-iy-Xaiq, Urinary Tract Infection, Adult, Ynyz-ye-Cgat, Abdominal Pain, Adult, Surz-ez-Ltzj. - Prescriptions for Bentyl 20 mg Oral Tablet - take 1 tablet by ORAL route every 6 hours As needed; 20 tablet. Levaquin 500 mg Oral Tablet - take 1 tablet by ORAL route once daily for 7 days; 7 tablet. Pepcid 20 mg Oral Tablet - take 1 tablet by ORAL route every 12 hours for 5 days; 10 tablet. - Medication Reconciliation Form, Thank You Letter, Antibiotic Education, Prescription Opioid Use form. - Follow up: Private Physician; When: 1 - 2 days; Reason: Worsening of condition, Recheck today's complaints, Re-evaluation by your physician. - Problem is an ongoing problem. - Symptoms have improved. Signatures: Dispatcher [employer] [facility] Mirella Carmona RN RN Ana Martinez RN RN ea Holmes, Maurice, MD MD mh7 Corrections: (The following items were deleted from the chart) 02/19 20:58 20:41 Abdomen Pelvis W Con+CT.RAD.BRZ ordered. [facility] 02/20 00:41 00:26 02/21/2020 00:26 Discharged to Home. Impression: Unspecified abdominal pain; ea Gastroenteritis; Urinary tract infection, site not specified. Condition is Stable. Forms are Medication Reconciliation Form, Thank You Letter, Antibiotic Education, Prescription Opioid Use. Follow up: Private Physician; When: 1 - 2 days; Reason: Worsening of condition, Recheck today's complaints, Re-evaluation by your physician. Problem is an ongoing problem. Symptoms have improved. mh7
--- NOTE | 2020-02-21 00:27 | ER ---
Nurse's Notes [facility] Name: Adrián Mak Age: 84 yrs Sex: Female : 1935 Arrival Date: 02/20/2020 Time: 18:59 Bed 14 Private MD: Diagnosis: Unspecified abdominal pain;Gastroenteritis;Urinary tract infection, site not specified Presentation: 02/19 19:10 Chief complaint: Patient states: L upper quadrant pain that began yesterday and ss diarrhea today. Denies fever. Coronavirus screen: Proceed with normal triage. Patient denies shortness of breath or difficulty breathing. Patient denies measured and/or subjective temperature greater than 100.4F prior to today's visit. Patient denies travel on a cruise ship or to a country the [facility] currently lists as an affected area. Patient denies contact with known and/or suspected case of COVID-19. Ebola Screen: Patient denies exposure to infectious person. Patient denies travel to an Ebola-affected area in the 21 days before illness onset. Initial Sepsis Screen: Does the patient meet any 2 criteria? No. Patient's initial sepsis screen is negative. Does the patient have a suspected source of infection? No. Patient's initial sepsis screen is negative. Risk Assessment: Do you want to hurt yourself or someone else? Patient reports no desire to harm self or others. Onset of symptoms was February 19, 2020. 19:10 Method Of Arrival: Wheelchair ss 19:10 Acuity: ELVI 3 ss Historical: - Allergies: 19:14 PENICILLINS; ss - Immunization history:: Adult Immunizations up to date. - Social history:: Smoking status: Patient denies any tobacco usage or history of. Screenin:46 Abuse screen: Denies threats or abuse. Nutritional screening: No deficits noted. ea Tuberculosis screening: No symptoms or risk factors identified. Fall Risk IV access (20 points). Assessment: 20:40 General: Appears uncomfortable, Behavior is appropriate for age. Pain: Complains of ea pain in left upper quadrant. Neuro: Level of Consciousness is awake, alert, obeys commands, Oriented to person, place, time, situation. Cardiovascular: Patient's skin is warm and dry. Respiratory: Airway is patent Respiratory effort is even, unlabored, Respiratory pattern is regular, symmetrical. GI: Bowel sounds present X 4 quads. Abdomen is tender to palpation in right upper quadrant and left upper quadrant. Derm: Skin is pink, warm \T\ dry. 21:46 Reassessment: Patient and/or family updated on plan of care and expected duration. Pain ea level reassessed. Patient is alert, oriented x 3, equal unlabored respirations, skin warm/dry/pink. 22:50 Reassessment: Patient and/or family updated on plan of care and expected duration. Pain ea level reassessed. Patient is alert, oriented x 3, equal unlabored respirations, skin warm/dry/pink. 23:47 Reassessment: Marcela Mak (daughter in law) [phone]. ea 02/20 00:26 Reassessment: Patient and/or family updated on plan of care and expected duration. Pain ea level reassessed. Patient is alert, oriented x 3, equal unlabored respirations, skin warm/dry/pink. Patient states symptoms have improved. Vital Signs: 02/19 19:10 BP 158 / 82; Pulse 64; Resp 16; Temp 97.7; Pulse Ox 99% on R/A; Weight 67.59 kg; Height 5 ft. 0 in. (152.40 cm); Pain 9/10; 21:36 BP 154 / 71; Pulse 52; Resp 18; Pulse Ox 100% ; ea 21:47 BP 154 / 71; Pulse 54; Resp 18; Pulse Ox 98% on R/A; ea 23:00 BP 182 / 85; Pulse 51; Resp 18; Temp 97.6(TE); Pulse Ox 99% on R/A; ea 02/20 00:20 BP 158 / 72; Pulse 55; Resp 16; Temp 97.6; Pulse Ox 98% on R/A; Pain 0/10; ea 02/19 19:10 Body Mass Index 29.10 (67.59 kg, 152.40 cm) ED Course: 02/19 18:59 Patient arrived in ED. mr 19:14 Triage completed. ss 19:14 Arm band placed on right wrist. ss 20:14 Ana Akhtar, MORTEZA is Primary Nurse. ea 20:14 Paul Vazquez MD is Attending Physician. [facility] 20:46 Patient has correct armband on for positive identification. Placed in gown. Bed in low ea position. Call light in reach. 20:46 Inserted saline lock: 20 gauge in right antecubital area, using aseptic technique. ea Blood collected. 22:42 Abdomen In Process Unspecified. EDWI 02/20 00:24 No provider procedures requiring assistance completed. ea 00:35 IV discontinued, intact, bleeding controlled, No redness/swelling at site. Pressure ea dressing applied. Administered Medications: 02/19 20:56 Drug: Pepcid 20 mg Route: IVP; Site: right antecubital; ea 22:56 Follow up: Response: No adverse reaction ea 20:59 Drug: Zofran (Ondansetron) 4 mg Route: IVP; Site: right antecubital; ea 22:56 Follow up: Response: No adverse reaction ea 21:00 Drug: morphine 2 mg Route: IVP; Site: right antecubital; ea 02/20 00:18 Follow up: Response: No adverse reaction; Pain is decreased; RASS: Alert and Calm (0) ea 00:18 Drug: LevaQUIN 500 mg Route: PO; ea 00:40 Follow up: Response: Medication administered at discharge. ea Outcome: 00:26 Discharge ordered by . [facility] 00:39 Discharged to home ambulatory, with family. ea 00:39 Condition: stable 00:39 Discharge instructions given to patient, Instructed on discharge instructions, follow up and referral plans. medication usage, Demonstrated understanding of instructions, follow-up care, medications, Prescriptions given X 3. 00:41 Patient left the ED. ea Addendum: 02/24/2020 07:22 Addendum: Culture Results: Positive urine culture. No further action required. Bacteria e b sensitive to prescribed antibiotic. Signatures: Dispatcher [employer] [facility] Alondra Goins Mirella Carmona, RN RN Ana Martinez RN RN ea Botello, Elizabeth eb Holmes, Maurice, MD MD 7
[2020-02-21 01:01] VITALS: TEMP 97.6
[2020-02-21 01:02] VITALS: BP 158/72; O2SAT 98
--- NOTE | 2020-02-21 11:45 | EKG ---
Test Date: 2020-02-20 Test Time: 20:57:56 Direct Marketing Analyst: MEASUREMENT RESULTS: Intervals: Rate: 53 AK: 176 QRSD: 84 QT: 468 QTc: 439 Chemult: P: 20 AK: 176 QRS: 8 T: 25 INTERPRETIVE STATEMENTS: Sinus bradycardia Otherwise normal ECG Compared to ECG 11/10/2016 10:16:22 Sinus arrhythmia no longer present First degree AV block no longer present Electronically Signed On 02-21-20 11:43:12 CDT by Bharat Loaiza
--- NOTE | 2020-02-21 15:26 | RAD REPORT ---
EXAM DESCRIPTION: CT - Abdomen Pelvis Wo Contrast - 02/21/2020 3:25 am CLINICAL HISTORY: Abdominal pain. COMPARISON: CT chest abdomen and pelvis without contrast 02/13/2020. TECHNIQUE: Axial unenhanced CT imaging of the abdomen and pelvis performed. Reformatted coronal and sagittal images reviewed. A dose reduction technique was utilized with automated exposure control according to patient size. FINDINGS: There is a pleural-based 3.1 cm opacity in the posterior lateral right lower lobe, unchang ed. There is associated small right pleural effusion. Minimal left lower lobe subpleural atelectasis. Heart is upper normal in size. Normal liver, gallbladder, spleen. There is pancreatic atrophy. Normal adrenal glands. Exophytic ante rior left renal 1.5 cm slightly complex cyst is stable. A small fluid debris level is present compati ble with milk of calcium. No renal stone. There is tortuosity the distal thoracic aorta. There is a stable 7.0 x 5.3 x 5.9 cm saccular aneurysm along the left side of the distal thoracic aorta. Extensive aorta atherosclerosis throughout the abd ominal aorta and iliac vessels also noted. No retroperitoneal adenopathy. Inferior vena cava is very flat and contour indicative of hypovolemia. The stomach appears normal. Small bowel loops are unremarkable. Appendix appears normal in the right lower quadrant. Mild descending and sigmoid colon diverticulosis. No diverticulitis. No ascites or fr ee air. Bladder contains a punctate focus of air. Atrophic uterus contains a subserosal calcifications, likel y vascular in etiology. No pelvic free fluid or adenopathy. Dystrophic calcification is present withi n the inferior perirectal space. There old depression fractures of T9, T12, and L2. There is a mild levoconvex thoracolumbar curve. A remote left inferior pubic ramus fracture is present. Hips are intact. IMPRESSION: 1. Mild descending and sigmoid colon diverticulosis without diverticulitis. 2. Stable right lower lobe pleural-based 2.1 cm mass may represent atelectasis. Small right pleural e ffusion is also present. Continued follow-up is warranted. 3. 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 Extensive abdominal and iliac artery atherosclerotic disease. 4. Punctate focus of bladder air. Urinary tract infection or recent catheterization could result in t his finding. Correlate with procedural history. 5. Dehydration. 6. Numerous old lower thoracic and lumbar fractures. Electronically signed by: Fe Medina DO 02/20/2020 11:00 PM CDT Due to temporary technical issues with the PACS/Fluency reporting system, reports are being signed by the in house radiologist without review as a courtesy to ensure prompt reporting. The interpreting r adiologist is fully responsible for the content of the report.
== END 2020-02-21 00:41 | disposition home or self-care (01) ==
LOC: ER 18:55
DX: K52.9 Noninfective gastroenteritis and colitis, unspecified (principal); N39.0 Urinary tract infection, site not specified; Z88.0 Allergy status to penicillin
CPT/HCPCS: 93005; 87088; 85025; 87086; 80048; 36415; 80076; 87077; 87186; 83690; 74176; 96375; 96374; 99284; J2270; J2405; 81003; 81015

== ENCOUNTER 2020-08-24 09:54 | Day surgery (SDC) | payer OTHER ==
[2020-08-23 16:47] LABS: Potassium 4.2 mmol/L (3.5-5.1)
[2020-08-23 17:05] LABS: Absolute Lymphocytes (CBC) 1.5 K/uL (0.7-4.9); Basophils % 1.5 % (0-1.3); Hematocrit 35.5 % (36.0-45.0); Lymphocytes % 22.6 % (15.3-44.8); RBC Red Blood Cell Count 3.98 M/uL (3.86-4.86)
[~2020-08-24 09:54] MED LIST: CIPROFLOXACIN 400mg IV 400 MG/200 ML BAG IV SCH
--- OUTSIDE RECORDS SUMMARY | 2020-08-24 10:08 | XMS REPORT | Clinical Summary ---
:1935 Author Organization [facility] Address [address] [place] [address] Care Team Providers Name Role Phone Enma Woody Primary Care Provider Allergies Active Allergy Reactions Severity Noted Date Comments Iodine Itching Medium 09/16/2016 Extreme itching and swelling to the eyes Penicillins Hives Medium 09/16/2016 Itching; hives (neck, arms, face) Medications Medication Sig Dispensed Refills Start End Date Status Date alendronate Take 70 mg by 0 Acti ve (FOSAMAX) 70 MG mouth every 7 tablet days. Take in the morning with a full glass of water, on an empty stomach, and do not take anything else by mouth or lie down for the next 30 min. pramipexole Take 0.25 mg 0 Activ e (MIRAPEX) 0.25 MG by mouth tablet daily. gabapentin Take 100 mg 0 Active (NEURONTIN) 100 mg by mouth 3 capsule (three) times a day. traMADol (ULTRAM) 50 Take 50 mg by 0 Active mg tablet mouth every 8 (eight) hours as needed for moderate pain. dexlansoprazole Take 60 mg by 0 Active (DEXILANT) 60 mg mouth daily. capsule ZENPEP THERESE 8 5 Active 40,000-126,000- (OCHO) 9 168,000 unit C?PSULAS POR capsule,delayed LA BOCA CADA release(DR/EC) RUSSELL losartan-hydrochloro Take 1 tablet 1 Active thiazide (HYZAAR) by mouth 9 50-12.5 mg per daily. tablet hydrocodone/acetamin Take by 0 Active ophen (VICODIN ORAL) mouth. fenofibrate Take 130 mg 0 Active micronized (ANTARA) by mouth 130 MG capsule daily before breakfast. magnesium oxide 400 Take 400 mg 0 Active mg magnesium tablet by mouth daily. clopidogreL (PLAVIX) Take 75 mg by 0 Active 75 mg tablet mouth daily. metoprolol tartrate Take 1 tablet 180 tablet 1 Active (LOPRESSOR) 50 mg (50 mg total) 0 tablet by mouth 2 (two) times a day. metoprolol tartrate Take 50 mg by 0 Discontinued (LOPRESSOR) 100 mg mouth 2 (two) 20 (Reorder) tablet times a day. mometasone (NASONEX) 1 spray into 0 Discontinued 50 mcg/actuation each nostril 20 (Discontinued by nasal spray daily. another clinician) folic acid (FOLVITE) Take 1 mg by 0 Discontinued 1 MG tablet mouth daily. 20 (Disc ontinued by another clinician) diltiazem CD Take 1 90 capsule 3 05/02/20 Discon tinued (CardIZEM CD) 120 MG capsule (120 9 20 24 hr mg total) by capsuleIndications: mouth daily. Essential hypertension Active Problems Problem Noted Date Malignant neoplasm of right lung 10/19/2019 Coronary artery disease involving [place] coronary galileo ry of [place] heart 09/20/2019 without angina pectoris Abdominal aortic [...] Encounters Date Type Specialty Care Team Description 05/02/2020 Telephone Cardiology Sandy Gaxiola, low hr and bp MA 03/20/2020 Office Visit Cardiology Chandan Cervantes, Abdominal a ortic aneurysm (AAA) without rupture (HCC) (Primary Dx); Coronary artery disease involving [place] coronary artery of [place] heart without angina pectoris 03/20/2020 Travel 10/19/2019 Hospital Encounter Radiology Felton Oliva MD 10/19/2019 Office Visit Cardiovascular Felton Oliva Abdominal ao kourtney Rodriguez MD aneurysm (AAA) without rupture (HCC) (Primary Dx) 10/14/2019 Telephone Cardiovascular Levy Araujo MD 10/13/2019 Orders Only Cardiothoracic Provider, Surgery MD Miranda 09/29/2019 Hospital Encounter Radiology Antoine Vyas MD 09/29/2019 Office Visit Cardiothoracic Antoine Vyas Malignant torsten plasm Surgery MD Ryanne of lower lobe o f right lung (HCC ) (Primary Dx) 09/29/2019 Telephone Cardiovascular Felton Oliva MD 09/29/2019 Telephone Tedcas Josep Ortiz 09/29/2019 Oncology Oncology Hair, Padilla Daley, MORTEZA 09/28/2019 Orders Only Cardiothoracic Provider, Surgery MD Miranda 09/27/2019 Telephone Cardiothoracic Sherri Henderson Surgery MA 09/20/2019 Office Visit Cardiology Chandan Cervantes Abdominal a ortic aneurysm (AAA) without rupture (HCC) (Primary Dx); Essential hyper tension; Coronary artery disease involving chene[place] coronary artery of [place] heart without angina pectoris after 08/24/2019 Surgical History Surgery Date Site/Laterality Comments BLADDER SURGERY THROAT SURGERY Medical History Medical History Date Comments Hypertension CVA (cerebral vascular accident) (HCC) Cancer (HCC) Family History Medical History Relation Name Comments Heart disease Brother Heart disease Father Relation Name Status Comments Brother Father Social History Tobacco Use Types Packs/Day Years Used Date Never Smoker Smokeless Tobacco: Never Used Tobacco Cessation: Counseling Given: No Alcohol Use Drinks/Week oz/Week Comments No Sex Assigned at Date Recorded Not on file Last Filed Vital Signs Vital Sign Reading Time Taken Comments Blood Pressure 134/64 03/20/2020 1:57 PM CDT Pulse 51 03/20/2020 1:57 PM CDT Temperature 36.9 C (98.4 F) 10/19/2019 12:59 PM BUS INSPECTOR Respiratory Rate 17 09/29/2019 9:56 AM BUS INSPECTOR Oxygen Saturation - - Inhaled Oxygen Concentration - - Weight 66.2 kg (146 lb) 03/20/2020 1:57 PM CDT Height 152.4 cm (5') 03/20/2020 1:57 PM CDT Body Mass Index 28.51 03/20/2020 1:57 PM CDT Plan of Treatment Date Type Specialty Care Team Description 09/25/2020 Office Visit Cardiology Chandan Cervantes MD [address] [facility] [address] [place], [place] [address] [phone] Health Maintenance Due Date Last Done Comments SHINGLES VACCINES (#1) 1986 65+ PNEUMOCOCCAL VACCINE (1 of 1 - PPSV23) 2001 INFLUENZA VACCINE 04/14/2020 Procedures Procedure Name Priority Date/Time Associated Diagnosis Comme nts MRI HEAD EXTERNAL Routine 2019 5:20 PM Res ults for this STUDY BUS INSPECTOR procedure are i n the results section. after 08/24/2019 Results MRI Head External Study (2019 5:20 PM BUS INSPECTOR) Specimen Narrative Performed At This exam was not acquired at a Methodis t facility and has not been [facility] interpreted by a [facility] Provider. T he exam was imported into our imaging system. Performing Organization Address City/State/ZIP Code Phon e Number [facility] [address] [place] [address] after 08/24/2019 Insurance Payer Benefit Plan / Subscriber ID Effective Dates Phone Addre ss Type Group MEDICARE MEDICARE PART A [id number] 2004-Present [place] Medicare AND B MEDICAID MEDICAID [id number] 2011-Present Med icaid Advance Directives For more information, please contact: [phone] Type Date Recorded Patient Monorail Operator Explanati on Advance Directives, Living Will and Medical Power of Institutional Research Coordinator
--- OUTSIDE RECORDS SUMMARY | 2020-08-24 10:09 | XMS REPORT | Continuity of Care Document ---
:1935 Author Organization [facility] t Address [address] [place] [address] Care Team Providers Name Role Phone Erin Woody DO Primary Care Physician Minor ALMANZAR Attending Clinician Unavailable Helen ALMEIDA, R. Attending Clinician Michael Oliva MD Attending Clinician Ryan Araujo MD Attending Clinician Mavis ALMEIDA Attending Clinician Asael ALMEIDA, Y.H. Attending Clinician Barrett Ortiz Attending Clinician Unavailable Hair PRO Attending Clinician Unavailable Santiago ALMANZAR Attending Clinician Unavailable Payers Payer Name Policy Type Policy Effective Date Expiration Date Sour ce Number MEDICAREMEDICARE PART [id number] 2004 Brett Driscoll AND 00:00:00 [facility] [id number] 2003 [place] [facility] [place]ICA[place]x [id number] 2011 Cora willoughby [id number] 2011-Present 00:00:00 Met yuliana renoid Problems Condition Condition Condition Status Onset Resolution Last Treating Co mments Source Name Details Category Date Date Treatment Clinician Date Malignant Malignant Disease Active Cora willoughby neoplasm neoplasm 2-05 Method i of right of right 00:00: st lung lung 00 Coronary Coronary Disease Active [place] artery artery 1-07 [facility] disease disease 00:00: st involving involving 00 [place] coronary coronary artery of artery of [place] heart heart without without angina angina pectoris [...] any size. Discussed with the patient our general assembler installer to wait until 5.5 cm and the [...] Disease Active Cora willoughby hypertensi hypertensi 09-16 Me [facility] on on 00:00: st 00 Routine Routine Disease Active [place] adult adult 09-16 [facility] [employer] health 00:00: st maintenanc maintenanc 00 e e Allergies, Adverse Reactions, Alerts Allergy Allergy Status [...] Not [facility] Reaction [facility] Iodine Adverse Active Info Not [facility] Reaction Available [facility] Family History Family Member Diagnosis Comments Start Date Stop Date Source Natural brother Heart disease Kale Duong Natural father Heart disease [place] [facility] Social History Social Habit Start Date Stop Date Quantity Comments Source Sex Assigned At [facility] ethodist Tobacco use and 2019-10-19 2019-10-[address] [facility] ethodist exposure 00:00:00 00:00:00 Alcohol intake 2019-10-19 2019-10-19 Current [facility] thodist 00:00:00 00:00:00 non-drinker of alcohol (finding) Smoking Status Start Date Stop Date Source Never smoker [place] Method[facility] t Medications Ordered Filled Start Stop Current Ordering Indication Dosage Frequency Signature Comments Components Source Medication Medication Date Date Medication? Clinician (SIG) Name Name metoprolol 2020-0 2020- No 50mg Q.5D Take 50 mg [place] tartrate 05-02 08-19 by mouth 2 Meth david (LOPRESSOR) 16:03: 00:00 (two) st 100 mg 01 :00 times a tablet day. metoprolol 2020-0 Yes 50mg Q.5D Take 1 [place] tartrate 05-02 tablet (50 Metho di (LOPRESSOR) 00:00: mg total) s t 50 mg 00 by mouth 2 tablet (two) times a day. alendronate 2020-0 Yes 70mg [...] tablet 43 daily. gabapentin 2020-0 Yes 100mg [id number] Take 100 [place] (NEURONTIN) 2-05 [id number] mg by M ethodi 100 mg 13:15: [...] hen 13:15: st (VICODIN 43 ORAL) fenofibrate 2019-0 Yes 130mg QD Take 130 [place] micronized 2-05 mg by Method[facility] (ANTARA) 13:15: mouth st 130 MG 43 daily capsule before breakfast. magnesium 2019-0 Yes 400mg QD Take 400 Cora ston oxide 400 2-05 mg by Methodi mg 13:15: mouth st magnesium 43 daily. tablet clopidogreL 2019-0 Yes 75mg QD Take 75 mg [place] (PLAVIX) 75 2-05 by mouth Meth david mg tablet 13:15: daily. st 43 folic acid 2020- No 1mg QD Take 1 mg [place] (FOLVITE) 1 05 02-05 by mouth Met hodi MG tablet 13:15: 00:[address] 43 :00 mometasone 2020- No 1{spray QD 1 spray [place] (NASONEX) 10-1905 } into each Meth david 50 13:15: 00:[address] mcg/actuati 39 :00 daily. on nasal spray diltiazem 2019- No Essential 120mg QD Take 1 [place] CD 9-17 08-19 hypertensio capsule Meth david (CardIZEM 00:00: 00:00 n ([address] CD) 120 MG 00 :00 total) by 24 hr mouth capsule daily. losartan-hy Yes 1{tbl} QD Take 1 [place] drochloroth 8-21 tablet by Met hodi iazide 00:00: mouth st (HYZAAR) 00 daily. 50-12.5 mg per tablet ZENPEP Yes THERESE 8 [place] 40,000-126, 8-14 (OCHO) Method i 000- 00:00: C?PSULAS st 168,000 00 POR LA unit BOCA CADA capsule,del RUSSELL ayed release(DR/ EC) Zenpep Zenpep Yes Na Woody [address] [facility] - breakfast, Memoria lunch and l dinnner Outpati and 1 ent capsule Clinics with snacks Dexilant Dexilant Yes Na Woody TAKE [address] CAPSULE BY [facility] - MOUTH ONCE Memoria EVERY DAY l Outpati ent Clinics Magnesium Magnesium Yes Na Woody [address] Oxide Oxide as needed [facility] Gabapentin Gabapentin Yes Na Woody TOME LUNA [facility] CAPSULA [facility] TODOS LOS [facility]oria NORIEGA l [facility] Metoprolol Metoprolol Yes Na Woody [address] Tartrate Tartrate with food Dayana kes - [facility] Hydenise Ash Yes Na Woody [address] [facility] Plavix Plavix Yes Na Woody [address] [facility] Cardizem Cardizem Yes Na Woody TOME LUNA [facility] TABLETA [facility] - POR VIA Memoria ORAL TODOS l LOS NORIEGA [facility] Pramipexole Pramipexole Yes Na Woody TOME LUNA [facility] Dihydrochlo Dihydrochlo TABLETA [facility] - ride ride POR VIA Memoria ORAL AL l ACOSTARSE [facility] Neurontin Neurontin Yes Na Woody [address] [facility] Mirapex Mirapex Yes Na Woody [address] before [facility] - bedtime [facility]oria l [facility] Clonidine Clonidine Yes Na Woody [address] [facility] HCl HCl at bedtime [facility] Alendronate Alendronate Yes Na Woody [address] [facility] Sodium Sodium [facility] Zenpep Zenpep Yes Na Woody as [facility] directed [facility] Magnesium Magnesium Yes Na Woody [address] [address] Oxide Oxide as needed [facility] Clopidogrel Clopidogrel Yes Na Woody TAKE [address] Bisulfate Bisulfate TABLET BY [facility] - MOUTH Memoria EVERY DAY l [facility] Alendronate Alendronate Yes Na Woody TOME LUNA [facility] Sodium Sodium TABLETA [facility] - POR VIA Memoria ORAL LUNA l VEZ POR [facility] SEMANA ent Clinics Metoprolol Metoprolol Yes Na Woody TAKE [address] Tartrate Tartrate TABLET BY Dayana kes - MOUTH TWO Memoria TIMES l DAILY [facility] Flonase Flonase Yes Na Woody [address] [facility] each [facility] - nostril [facility]oria l [facility] Nilsa Ash Yes Na Woody [address] [facility]ics Pancrelipas Pancrelipas Yes Na Woody not [facility] e e defined [facility] - (Lip-Prot-A (Lip-Prot-A M emoria myl) myl) l [facility] Cardizem Cardizem Yes Na Woody [address] [facility] Losartan Losartan Yes Na Woody TAKE [address] Potassium-H Potassium-H TABLET BY [facility] - CTZ CTZ MOUTH ONCE Memoria EVERY DAY l [facility] ent Clinics Vital Signs Vital Name Observation Time Observation Value Comments Source Systolic blood 2020-03-20 13:57:00 134 mm[Hg] [place] n [facility]ism pressure Diastolic blood 2020-03-20 13:57:00 64 mm[Hg] [place] [facility] pressure Heart rate 2020-03-20 13:57:00 51 /min Catr[place] Duong Body height 2020-03-20 13:57:00 152.4 cm [place] [facility] Body weight 2020-03-20 13:57:00 66.225 kg [place] [facility] BMI 2020-03-20 13:57:00 28.51 kg/m2 [place] [facility] Body temperature 2019-10-19 12:59:00 36.89 [place] [facility] Respiratory rate 2019-09-29 09:56:00 17 /min [place] [facility] Procedures Procedure Date / Time Performed Performing Clinician [facility] e MRI HEAD EXTERNAL STUDY 2019 17:20:00 Veronica Oliva Plan of Care Planned Activity Planned Date Details Comments Source Future Scheduled 2020-04-14 INFLUENZA VACCINE [place] [facility] Test 00:00:00 [code = INFLUENZA VACCINE] Future Scheduled 2001 65+ PNEUMOCOCCAL [place] [facility] Test 00:00:00 VACCINE (1 of 1 - PPSV23) [code = 65+ PNEUMOCOCCAL VACCINE (1 of 1 - PPSV23)] Future Scheduled 1986 SHINGLES VACCINES (#1) H christina [facility]ism Test 00:00:00 [code = SHINGLES VACCINES (#1)] Encounters Start End Encounter Admission Attending Care Care Encounter Source Date/Time Date/Time Type Type Clinicians Facility Department ID 2019-10-26 Outpatient [facility] MED [id number] BL 15:55:40 2020-07-30 2020-07-30 Outpatient [facility] [id number] [facility] 2020-06-21 2020-06-21 [facility] [id number] 2020-06-21 2020-06-21 [facility] [id number] [facility] 2020-03-20 2020-03-20 Outpatient [facility] [id number] [place] 00:00:00 00:00:00 MARCIO [address] 2020-03-04 2020-03-04 [facility] [id number] 12:31:[facility] 12:31:[address] [facility] Outpat[facility] Clinics 2020-02-27 2020-02-27 [facility] [id number] 10:40:00 10:40:00 [place] [employer] [facility] - [facility] Medicine Outpati ent Clinics 2019-12-28 2019-12-28 [facility] [id number] 08[facility]00:00 08:00:[address] [facility] - Drive [facility] Medicine Outpati ent Clinics 2019-12-13 2019-12-13 [facility] [id number] 16:26:00 16:26:[address] [facility] - Drive [facility] Medicine l Medicine Outpati ent Clinics 2019-11-03 2019-11-03 [facility] [id number] 16:37:00 16:37:[address] [facility] - Drive [facility] Medicine Medicine Outpati ent Clinics 2019-10-19 2019-10-19 Outpatient [facility] [id number] [place] 00:00:00 00:00:00 VERONICA [address] 2019-09-30 2019-09-30 [facility] [id number] 09:53:00 09:53:[address] [facility] - Drive [facility] Outpat[facility] Clinics 2019-09-29 2019-09-29 Outpatient [facility] [id number] [place] 00:00:00 00:00:00 EDWARD [address] 2019-09-28 2019-09-28 [facility] [id number] 09:40:00 09:40:00 t [employer] [facility] l Medicine Outpati ent Clinics 2019-08-02 2019-08-02 Emergency E [facility]BL [facility] [id number] [facility] 13:09:00 13:09:00 2019-08-02 2019-08-02 Outpatient [facility] PUL [id number] [facility] 07:24:00 07:24:00 2019-07-01 2019-07-01 [facility] [id number] 09[facility]57:00 09:57:00 t [employer] - [employer] [facility] Medicine l Medicine Outpati ent Clinics 2019-06-20 2019-06-20 [facility] [id number] 11:09:00 11:09:00 [place] [employer] Medicine l Medicine Outpati ent Clinics 2019-06-16 2019-06-16 [facility] [id number] 10:40:00 10:40:00 [place] [employer] - [employer] [facility] Medicine l Medicine Outpati ent Clinics 2019-06-03 2019-06-03 [facility] [id number] 10:33:00 10:33:00 t [employer] - [employer] [facility] Medicine l Medicine Outpati ent Clinics 2019-03-16 2019-03-16 [facility] [id number] 09:40:00 09:40:00 [place] [employer] - [employer] [facility] Medicine l Medicine Outpati ent Clinics 2018-12-15 2018-12-15 [facility] [id number] 08:40:00 08:40:00 [place] [employer] [facility] Medicine l Medicine Outpati ent Clinics 2018-09-16 2018-09-16 [facility] [id number] 10:00:00 10:00:00 [place] [employer] [facility] Medicine Outpati ent Clinics 2018-09-09 2018-09-09 [facility] [id number] 08:15:00 08:15:00 [place] [employer] - Drive [facility] Medicine Outpati ent Clinics 2018-08-31 2018-08-31 [facility] [id number] 10:15:00 10:15:00 [place] [employer] - Drive [facility] Medicine Outpati ent Clinics 2018-08-25 2018-08-25 [facility] [id number] 10:51:00 10:51:00 [place] [employer] - Drive [facility] Medicine Outpati ent Clinics 2018-07-01 2018-07-01 [facility] [id number] 10:31:00 10:31:00 [place] [employer] - Drive [facility] Medicine Outpati ent Clinics 2018-06-09 2018-06-09 [facility] [id number] 10:10:00 10:10:00 t [employer] - Drive [facility] Medicine Outpati ent Clinics 2018-06-07 2018-06-07 [facility] [id number] 14:30:00 14:30:00 t [employer] s - Drive [facility] Medicine Outpati ent Clinics Results Test Description Test Time Test Comments Results Result [facility] e Comments MRI Head External 2019-10-19 This exam was not [place] Study 20:23:39 acquired at a [facility] facility and has not been interpreted by a An[facility]ism Provider. The exam was imported into our imaging system.
[2020-08-24] MEDS ORDERED: Ringers Lactate 1,000 ML IV ONE (10:35)
[2020-08-24] MEDS ORDERED: CIPROFLOXACIN 400mg IV 400 MG/200 ML BAG IV ONE (10:35)
[2020-08-24] MEDS ORDERED: propofoL 200 MG/20 ML VIAL IV ONE (12:12)
[2020-08-24] MEDS ORDERED: FENTANYL CITR 100 MCG/2 ML ONE (12:13)
[2020-08-24] MEDS ORDERED: LIDOCAINE 2% MPF 5 ML VIAL ONE (12:13)
[2020-08-24] MEDS ORDERED: EPHEDRINE SULF 50 MG/ML VIAL ONE (13:14)
[2020-08-24 13:54] VITALS: O2SAT 100
[2020-08-24] MEDS ORDERED: ONDANSETRON 4 MG/2 ML VIAL ONE (14:03)
--- NOTE | 2020-08-24 14:30 | OP ---
Date of Procedure: 08/24/2020 Surgeon: Rafael Menjivar MD Freelance Director: None. Preoperative Diagnosis: Left axillary mass. Postoperative Diagnosis: Left axillary mass. Procedure: Excision of left axillary mass, which turned out to be a lymph node. Specimen: Left axillary mass. 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 Anesthesia: General. Complications: None. Disposition: The patient tolerated the procedure in stable condition and taken to Recovery in good g eneral condition. Procedure In Detail: The patient was brought to the OR and placed in supine position. General anest hesia begun. The patient was prepped and draped in the usual sterile fashion. Marcaine 0.5% was inf iltrated locally. A 15-blade was used to make a 4 cm incision in the left axilla. Subcutaneous tiss ue divided. Deep to the subcutaneous tissue, an enlarged lymph node that was hard was palpated and t hen vascular clips were utilized to get control of the vascular pedicles and then the lymph node was removed and frozen section revealed it to be metastatic carcinoma. Wound was irrigated, bleeding con trolled with cautery and then 3-0 chromic was used to approximate subcutaneous tissues and the skin. Sterile dressing was applied. The patient was awakened and taken to Recovery in good general condit ion. Discharge Note: The patient will go to Day Surgery and home when stable. Disposition: Home. Condition: Stable. Discharge Instructions: Resume home medications and diet. Activity as tolerated. No heavy lifting. Remove outer dressing in 2 days. Shower. Keep wound clean and dry. Keep Steri-Strips on at all t imes. Tylenol No. 3 one tablet p.o. q.4 p.r.n. pain. Follow up in my office in 10 days. Call for a ppointment. /MODL Voice ID: [id number] Report ID: [id number]
[2020-08-24 14:48] VITALS: BP 124/85; TEMP 97.6
== END 2020-08-24 15:20 | disposition home or self-care (01) ==
LOC: OR 09:54
PROVIDERS: ATTEND Surgery
PROC: 0JBF0ZZ Excision of Left Upper Arm Subcutaneous Tissue and Fascia, Open Approach (ICD-10-PCS; principal; 2020-08-24 11:00)
DX: C77.3 Secondary and unspecified malignant neoplasm of axilla and upper limb lymph nodes (principal); Z20.828 Contact with and (suspected) exposure to other viral communicable diseases; Z85.118 Personal history of other malignant neoplasm of bronchus and lung
CPT/HCPCS: 93005; 85025; 80048; 36415; 88305; 88333; 11604; U0002; J2704; J3010; J7120; J2405; J0744

== ENCOUNTER 2020-10-23 13:50 | Emergency (ER) | payer OTHER ==
[2020-10-23] MEDS ORDERED: ONDANSETRON 4 MG/2 ML VIAL ONE (14:25)
[2020-10-23] MEDS ORDERED: MORPHINE 2 MG/ML SYR ONE ×2 (14:25→16:57)
[2020-10-23] MEDS ORDERED: NA CHLORIDE 0.9% 250 ML ONE (14:25)
[2020-10-23 14:36] LABS: ALT/SGPT 30 U/L (12-78); AST/SGOT 21 U/L (15-37); Albumin 3.1 g/dL (3.4-5.0); Alkaline Phosphatase 172 U/L (45-117); BUN Blood Urea Nitrogen 13 mg/dL (7-18); Bicarbonate 26 mmol/L (21-32); Bilirubin Direct < 0.1 mg/dL (0-0.2); Bilirubin Total 0.3 mg/dL (0.2-1.0); Glucose Level 99 mg/dL (74-106); Lipase 119 U/L (73-393); Potassium 3.5 mmol/L (3.5-5.1); Sodium Level 137 mmol/L (136-145); Troponin I < 0.02 ng/mL (0.0-0.045)
[2020-10-23 14:37] LABS: Absolute Lymphocytes (CBC) 1.9 K/uL (0.7-4.9); Basophils % 0.2 % (0-1.3); Hematocrit 35.8 % (36.0-45.0); Lymphocytes % 11.3 % (15.3-44.8); MPV 7.7 fL (7.6-11.3); RBC Red Blood Cell Count 4.07 M/uL (3.86-4.86)
--- NOTE | 2020-10-23 14:59 | RAD REPORT ---
EXAM DESCRIPTION: CT - Stone Protocol - 10/23/2020 2:34 pm CLINICAL HISTORY: FLANK PAIN COMPARISON: Abdomen Pelvis Wo Contrast dated 02/20/2020; CT ABDOMEN PELVIS WO CONTRAST dated 02/06/20 TECHNIQUE: Axial [address] imaging of the abdomen and pelvis was performed without IV contrast. No IV contrast was given because of allergy, abnormal renal function, patient refusal or physician re quest. No oral contrast administered. All CT scans are performed using dose optimization technique as appropriate and may include automated exposure control or mA/KV adjustment according to patient size. FINDINGS: Lung bases show extensive interstitial fibrotic change. Right-sided pleural effusion has d iminished since the February 2020 comparison. There is a focal 2.8 centimeter soft tissue opacity in the right posterior lung base that could be atelectasis, focal infiltrate or even a mass lesion. This has increased from February 2020. Minimal left-sided pleural effusion is present. Patient has a known large distal thoracic aortic aneurysm. Aneurysm measures 5.9 x 6.5 cm in diameter . No centrally displaced calcifications. This projects from the left lateral margin of the distal tho racic aorta just above the jada of the diaphragm. There is intermediate and slightly hyper dense mate rial surrounding the aneurysm in extending towards the jada of the diaphragm. Assessment is limited i n the absence of contrast. Finding is considered highly suspicious for a ruptured or leaking thoracic aortic aneurysm. Abdominal aorta is densely calcified but nonaneurysmal. Dense calcifications of the iliac vasculature and mesenteric vasculature also noted. The liver, spleen and pancreas show no suspicious findings on non-contrast imaging. Gallbladder is co ntracted limiting assessment. No biliary tree dilatation. No hydronephrosis or suspicious renal mass. Pyelonephritis and renal function cannot be assessed in t he absence of contrast. No obstructing or nonobstructing calculi. No significant adrenal finding. The urinary bladder is without significant finding. Uterus and ovaries show no suspicious findings. No dilated bowel loops or bowel wall thickening. Sigmoid diverticulosis present without diverticuliti s. No intraperitoneal free air, free fluid or pneumatosis. No hernia, mass or bulky lymphadenopathy. Prominent disc and bony degenerative changes are present. No pathologic changes seen. Findings telephoned to the referring clinician 1452 hours IMPRESSION: Large 5.9 x 6.5 centimeter descending thoracic aortic aneurysm with findings highly susp icious for rupture or leakage from the aneurysm. This is incompletely assessed. A 2.8 centimeter masslike density in the posterior right lung base has enlarged slightly from March 03. This could be mass, atelectasis or even possibly infiltrate. This will need ongoing monitoring af ter management of the aortic process. No acute abdominal or pelvic finding. Full assessment is limited is the absence of IV contrast.
--- NOTE | 2020-10-23 15:11 | RAD REPORT ---
EXAM DESCRIPTION: RAD - Chest Single View - 10/23/2020 2:44 pm CLINICAL HISTORY: right flank pain COMPARISON: Two view chest December 2018 TECHNIQUE: AP portable chest image was obtained 10/23/2020 2:44 pm . FINDINGS: No peripheral mass or consolidation. Chronic interstitial pattern matches comparison. Ther e is increased density along the right heart border continuing superiorly to the right apex. This is in part due to patient rotation. Chest film was interpreted subsequent to the abdomen and pelvis CT s aliyady. That examination demonstrated rupture or hemorrhage of a known descending thoracic aortic aneur ysm. The new density may all be hemorrhagic material that is extended superiorly from the ruptured an eurysm. Trachea remains in the midline. Heart and vasculature are normal. No pneumothorax. No large pleural f luid collection. No acute bony abnormality seen. IMPRESSION: Increased density along the right side of the mediastinum and heart border in this patie nt with a ruptured descending thoracic aortic aneurysm. Increased right-side density is suspected to be hemorrhagic material.
[2020-10-23] MEDS ORDERED: Nicardipine/NS 25 MG/250 ML KIT IV ONE (15:20)
[2020-10-23] MEDS ORDERED: Meropenem 1 GM/100 ML BAG ONE (15:20)
--- NOTE | 2020-10-23 15:21 | EDPHYS ---
Physician Documentation [facility] Name: Adrián Mak Age: 85 yrs Sex: Female : 1935 Arrival Date: 10/23/2020 Time: 13:50 Bed 19 Private MD: ED Physician Curtis Quiroz HPI: 10/23 14:00 This 85 yrs old Female presents to ER via EMS with complaints of Flank Pain. cp 14:00 The patient complains of pain in the right flank. cp 14:00 The pain radiates to the abdomen. Onset: The symptoms/episode began/occurred suddenly, cp just prior to arrival. Associated signs and symptoms: Pertinent negatives: diarrhea, dysuria, fever, pain radiating to the lower extremities, vomiting. Severity of pain: in the emergency department the pain has improved moderately. The patient has not experienced similar symptoms in the past. Historical: - Allergies: 13:55 PENICILLINS; hb 13:55 Iodine; hb - PMHx: 14:03 Hypertension; ph - Immunization history:: Adult Immunizations up to date. - Social history:: Smoking status: Patient denies any tobacco usage or history of. ROS: 14:05 Constitutional: Negative for body aches, chills, fever, poor PO intake. cp 14:05 Eyes: Negative for injury, pain, redness, and discharge. cp 14:05 ENT: Negative for ear pain, sore throat, difficulty swallowing, difficulty handling secretions. 14:05 Cardiovascular: Negative for chest pain, edema, palpitations. 14:05 Respiratory: Negative for cough, shortness of breath, wheezing. 14:05 Back: Positive for flank pain, on the right, Negative for injury or acute deformity, decreased range of motion. Exam: 14:10 Constitutional: The patient appears in no acute distress, alert, awake, cp non-diaphoretic, non-toxic, well developed, well nourished, uncomfortable. 14:10 Head/Face: Normocephalic, atraumatic. cp 14:10 Eyes: Periorbital structures: appear normal, Conjunctiva: normal, no exudate, no injection, Sclera: no appreciated abnormality, Lids and lashes: appear normal, bilaterally. 14:10 ENT: External ear(s): are unremarkable, Nose: is normal, Mouth: Lips: moist, Oral mucosa: moist, Posterior pharynx: Airway: no evidence of obstruction, patent. 14:10 Neck: ROM/movement: is normal, is supple, without pain, no range of motions limitations, no nuchal rigidity. 14:10 Chest/axilla: Inspection: normal, Palpation: is normal, no crepitus, no tenderness. 14:10 Cardiovascular: Rate: normal, Rhythm: regular, Edema: is not appreciated, JVD: is not appreciated. 14:10 Respiratory: the patient does not display signs of respiratory distress, Respirations: normal, no use of accessory muscles, no retractions, labored breathing, is not present, Breath sounds: are clear throughout, no decreased breath sounds, no stridor, no wheezing. 14:10 Abdomen/GI: Inspection: abdomen appears normal, Bowel sounds: active, all quadrants, Palpation: soft, in all quadrants, moderate abdominal tenderness, in the posterior aspect of right lateral abdomen, anterior aspect of right lateral abdomen, right upper quadrant and right lower quadrant, rebound tenderness, is not appreciated, voluntary guarding. 14:10 Skin: no rash present. 14:10 Neuro: Orientation: to person, place \T\ time. Mentation: is normal, Motor: moves all fours, strength is normal, Sensation: numbness, that is mild, of the left leg. 14:18 ECG was reviewed by the Attending Physician. cp Vital Signs: 13:52 BP 157 / ???; Pulse 96; Resp 83; Temp 98.3; Pulse Ox 100% on R/A; Pain 8/10; hb 14:59 BP 151 / 86; Pulse 79; Resp 22; Pulse Ox 98% on R/A; ph 15:50 BP 143 / 70; Pulse 85; Resp 18; Pulse Ox 100% on 2 lpm NC; ph 16:00 BP 130 / 76; Pulse 88; Resp 18; Pulse Ox 99% on 2 lpm NC; ph 16:30 BP 122 / 79; Pulse 94; Resp 16; Pulse Ox 100% on 2 lpm NC; ph 16:55 BP 115 / 89; Pulse 97; Resp 20; Pulse Ox 99% on 2 lpm NC; ph MDM: 13:54 Patient medically screened. thang 14:30 Differential diagnosis: nephrolithiasis, pyelonephritis, UTI, diverticulitis, cp pancreatitis, ruptured AAA, dissecting AAA. 15:30 Data reviewed: vital signs, nurses notes, lab test result(s), EKG, radiologic studies, cp CT scan, plain films, I have discussed the patient's presentation/case with the attending Emergency Department Physician; and as a result, I will transfer patient. 15:30 Test interpretation: by ED physician or midlevel provider: ECG, plain radiologic cp studies. Counseling: I had a detailed discussion with the patient and/or guardian regarding: the historical points, exam findings, and any diagnostic results supporting the discharge/admit diagnosis, lab results, radiology results, the need to transfer to another facility, for higher level of care, [facility] does not immediately have the required specialist. Response to treatment: the patient's symptoms have markedly improved after treatment. 10/23 14:06 Order name: Basic Metabolic Panel 10/23 14:06 Order name: CBC with Diff 10/23 14:06 Order name: Hepatic Function; Complete Time: 14:54 10/23 14:06 Order name: Lipase; Complete Time: 14:54 10/23 14:06 Order name: Troponin I; Complete Time: 14:54 10/23 14:06 Order name: Urine Microscopic Only; Complete Time: 16:08 10/23 14:06 Order name: XRAY Chest (1 view); Complete Time: 15:21 cp 10/23 14:06 Order name: CT Stone Protocol; Complete Time: 15:02 10/23 14:06 Order name: Basic Metabolic Panel; Complete Time: 14:54 [facility] 10/23 14:06 Order name: CBC with Automated Diff; Complete Time: 14:54 [facility] 10/23 15:04 Interpretation: Normal except: WBC 16.80; HCT 35.8; PRIMO% 82.5; LYM% 11.3; NEUT A 13.8. cp 10/23 15:28 Order name: Urine Dipstick--Ancillary (enter results) hb 10/23 15:58 Order name: Urine Culture EDNV 10/23 14:06 Order name: IV Saline Lock; Complete Time: 14:25 cp 10/23 14:06 Order name: Labs collected and sent; Complete Time: 14:25 10/23 14:06 Order name: EKG; Complete Time: 14:06 10/23 14:06 Order name: EKG - Nurse/Tech; Complete Time: 14:27 cp 02 14:06 Order name: Urine Dipstick-Ancillary (obtain specimen); Complete Time: 15:26 cp 10/23 15:07 Order name: Bob; Complete Time: 15:26 cp EC:18 Rate is 89 beats/min. Rhythm is regular. DE interval is normal. QRS interval is normal. cp QT interval is normal. T waves are Inverted in leads III, aVR. Interpreted by me. Reviewed by me. Administered Medications: 14:23 Drug: NS 0.9% 250 ml Route: IV; Rate: 250 ml/hr; Site: left antecubital; ph 15:10 Follow up: Response: No adverse reaction; IV Status: Completed infusion; IV Intake: ph 250ml 15:26 Follow up: Response: No adverse reaction; IV Status: Completed infusion; IV Intake: ph 250ml 14:23 Drug: Zofran (Ondansetron) 4 mg Route: IVP; Site: left antecubital; ph 14:35 Follow up: Response: No adverse reaction ph 14:25 Drug: morphine 2 mg Route: IVP; Site: left antecubital; ph 15:10 Drug: Cardene 2.5 mg/hr Route: IV; Rate: calculated rate; Site: right antecubital; ph 16:30 Follow up: Response: No adverse reaction; IV Status: Infusion continued upon transfer ph 15:10 Drug: Meropenem 1 grams Route: IV; Rate: calculated rate; Site: left antecubital; ph 15:40 Follow up: Response: No adverse reaction; IV Status: Completed infusion; IV Intake: ph 100ml 16:45 Drug: morphine 2 mg Route: IVP; Site: right antecubital; ph 17:00 Follow up: Response: No adverse reaction; Pain is decreased ph Disposition: 10/24 07:55 Co-signature as Attending Physician, Curtis Quiroz MD I agree with the assessment and [facility] plan of care. Disposition: 10/23/20 15:20 Transfer ordered to [facility]. Diagnosis is Thoracic aortic aneurysm, ruptured. - Reason for transfer: Higher level of care. - Accepting physician is DR Joseph. - Condition is Critical. - Problem is new. - Symptoms have improved. Signatures: Dispatcher [employer] Curtis Diehl MD MD cha Hall, Patricia RN RN ph Curtis Rashid PA PA cp Radha Pemberton, RN RN Corrections: (The following items were deleted from the chart) 02 16:53 16:23 CORONAVIRUS+MR.LAB.BRZ ordered. EDMS EDMS 17:03 15:20 10/23/2020 15:20 Transfer ordered to [facility]. Diagnosis is Thoracic cp aortic aneurysm, ruptured. Reason for transfer: Higher level of care. Accepting physician is . Condition is Critical. Problem is new. Symptoms have improved. cp 17:17 17:03 10/23/2020 15:20 Transfer ordered to [facility]. Diagnosis is Thoracic ph aortic aneurysm, ruptured. Reason for transfer: Higher level of care. Accepting physician is DR Joseph. Condition is Critical. Problem is new. Symptoms have improved. cp
--- NOTE | 2020-10-23 15:21 | ER ---
Nurse's Notes [facility] Name: Adrián Mak Age: 85 yrs Sex: Female : 1935 Arrival Date: 10/23/2020 Time: 13:50 Bed 19 Private MD: Diagnosis: Thoracic aortic aneurysm, ruptured Presentation: 10/23 13:52 Chief complaint: EMS states: Sudden onset right flank pain while standing in line at the pharmacy. Fentanyl 50mcg administered to 20g LAC VACUUM TESTER CANS. SBP 160s, HR 90s, NSR on 12 lead. Coronavirus screen: At this time, the client does not indicate any symptoms associated with coronavirus-19. Ebola Screen: No symptoms or risks identified at this time. Initial Sepsis Screen: Does the patient meet any 2 criteria? No. Patient's initial sepsis screen is negative. Does the patient have a suspected source of infection? No. Patient's initial sepsis screen is negative. Risk Assessment: Do you want to hurt yourself or someone else? Patient reports no desire to harm self or others. Onset of symptoms was October 23, 2020. 13:52 Method Of Arrival: EMS: [facility] hb 13:52 Acuity: ELVI 3 hb 14:58 Acuity: ELVI 1 ph Historical: - Allergies: 13:55 PENICILLINS; hb 13:55 Iodine; hb - PMHx: 14:03 Hypertension; ph - Immunization history:: Adult Immunizations up to date. - Social history:: Smoking status: Patient denies any tobacco usage or history of. Screenin:02 Abuse screen: Denies threats or abuse. Denies injuries from another. Nutritional ph screening: No deficits noted. Tuberculosis screening: No symptoms or risk factors identified. Fall Risk None identified. Assessment: 14:01 General: Appears in no apparent distress. Behavior is calm, cooperative, appropriate ph for age. Pain: Complains of pain in anterior aspect of right lateral abdomen. Neuro: Level of Consciousness is awake, alert, obeys commands, Oriented to person, place, time, situation. Cardiovascular: Capillary refill < 3 seconds in bilateral fingers Patient's skin is warm and dry. Respiratory: Airway is patent Respiratory effort is even, unlabored, Respiratory pattern is regular, symmetrical. Derm: Skin is intact, Skin is pink, warm \T\ dry. Musculoskeletal: Circulation, motion, and sensation intact. Range of motion: intact in all extremities. 14:25 Reassessment: Pt taken to CT via stretcher. ph 15:00 Reassessment: Patient appears in no apparent distress at this time. Patient and/or ph family updated on plan of care and expected duration. Pain level reassessed. Patient is alert, oriented x 3, equal unlabored respirations, skin warm/dry/pink. 16:04 Reassessment: Patient appears in no apparent distress at this time. Patient and/or ph family updated on plan of care and expected duration. Pain level reassessed. Patient is alert, oriented x 3, equal unlabored respirations, skin warm/dry/pink. 17:04 Reassessment: Patient appears in no apparent distress at this time. Patient and/or ph family updated on plan of care and expected duration. Pain level reassessed. Patient is alert, oriented x 3, equal unlabored respirations, skin warm/dry/pink. [facility] at bedside, report given to flight nurse. Vital Signs: 13:52 BP 157 / ???; Pulse 96; Resp 83; Temp 98.3; Pulse Ox 100% on R/A; Pain 8/10; hb 14:59 BP 151 / 86; Pulse 79; Resp 22; Pulse Ox 98% on R/A; ph 15:50 BP 143 / 70; Pulse 85; Resp 18; Pulse Ox 100% on 2 lpm NC; ph 16:00 BP 130 / 76; Pulse 88; Resp 18; Pulse Ox 99% on 2 lpm NC; ph 16:30 BP 122 / 79; Pulse 94; Resp 16; Pulse Ox 100% on 2 lpm NC; ph 16:55 BP 115 / 89; Pulse 97; Resp 20; Pulse Ox 99% on 2 lpm NC; ph ED Course: 13:50 Patient arrived in ED. ds1 13:51 Curtis Rashid PA is PHCP. cp 13:51 Curtis Quiroz MD is Attending Physician. cp 13:55 Triage completed. hb 13:55 Arm band placed on. hb 14:01 Amy Key, MORTEZA is Primary Nurse. ph 14:02 Patient has correct armband on for positive identification. Placed in gown. Bed in low ph position. Call light in reach. Side rails up X 1. monitor and storage bin tender on. Pulse ox on. NIBP on. Door closed. Noise minimized. Warm blanket given. 14:25 Maintain EMS IV. Dressing intact. Good blood return noted. Site clean \T\ dry. Gauge \T\ ph site: 20 LAC. 14:33 CT Stone Protocol In Process Unspecified. EDMS 14:42 XRAY Chest (1 view) In Process Unspecified. EDMS 14:59 initiated transfer to [facility], pt denied due to hospital being on satuation.bd 15:04 Inserted saline lock: 18 gauge in right antecubital area, using aseptic technique. hb 15:22 intiated transfer to [facility],pt denied due to no capacity,per blake. bd 15:24 No provider procedures requiring assistance completed. Rojas cath inserted, using ph sterile technique, 16 Fr., by vt, balloon inflated, to gravity drainage, urine specimen collected. returned clear yellow urine. Patient tolerated well. Patient transferred, IV remains in place. 15:35 initiated transfer to [facility]. bd 15:35 pt was denied at [facility] due to no beds at this time. bd 15:36 dr quiroz spoke with dr lauren, re initiated transfer to [facility]. bd 15:57 spoke to meghan at [facility], they are still waiting on admin approval[facility] 16:36 pt accepted in transfer to [facility] by dr Dill, admit approval given by max Smith. Administered Medications: 14:23 Drug: NS 0.9% 250 ml Route: IV; Rate: 250 ml/hr; Site: left antecubital; ph 15:10 Follow up: Response: No adverse reaction; IV Status: Completed infusion; IV Intake: ph 250ml 15:26 Follow up: Response: No adverse reaction; IV Status: Completed infusion; IV Intake: ph 250ml 14:23 Drug: Zofran (Ondansetron) 4 mg Route: IVP; Site: left antecubital; ph 14:35 Follow up: Response: No adverse reaction ph 14:25 Drug: morphine 2 mg Route: IVP; Site: left antecubital; ph 15:10 Drug: Cardene 2.5 mg/hr Route: IV; Rate: calculated rate; Site: right antecubital; ph 16:30 Follow up: Response: No adverse reaction; IV Status: Infusion continued upon transfer ph 15:10 Drug: Meropenem 1 grams Route: IV; Rate: calculated rate; Site: left antecubital; ph 15:40 Follow up: Response: No adverse reaction; IV Status: Completed infusion; IV Intake: ph 100ml 16:45 Drug: morphine 2 mg Route: IVP; Site: right antecubital; ph 17:00 Follow up: Response: No adverse reaction; Pain is decreased ph Intake: 15:10 IV: 250ml; Total: 250ml. ph 15:26 IV: 250ml; Total: 500ml. ph 15:40 IV: 100ml; Total: 600ml. ph Outcome: 15:20 ER care complete, transfer ordered by MD. cp 17:01 Transferred ph 17:01 Transferred by helicopter [facility]. to [facility], Transfer form completed. X-rays sent w/ patient. 17:01 Condition: stable 17:01 Instructed on the need for transfer. 17:17 Patient left the ED. ph Addendum: 10/26/2020 08:45 Addendum: Culture Results: Positive urine culture. Pt was d/c'd from [facility] a a5 yesterday and pt currently in ER. Dr. Alvarez was notified of positive urine culture during ER visit today. Signatures: Dispatcher [employer] EDMS Roya Almeida Demi ds1 Milli Barba, RN RN aa5 Amy Key RN RN Curtis Carter PA PA cp Baxter, Heather, RN RN hb
[2020-10-23 15:34] LABS: Urine Blood 1+ (NEG); Urine Glucose NEGATIVE (NEG); Urine Protein NEGATIVE (NEG); Urine pH 6.5 (5.0-7.0)
[2020-10-23 15:57] LABS: Urine Bacteria >50 /HPF (<20); Urine RBC <5 /HPF (NONE SEEN)
[2020-10-23 17:27] VITALS: TEMP 98.3
[2020-10-23 17:34] VITALS: BP 115/89; O2SAT 99
--- OUTSIDE RECORDS SUMMARY | 2020-10-24 10:38 | XMS REPORT | Clinical Summary ---
:1935 Author Organization [facility] Address [address] [place] [address] Care Team Providers Name Role Phone Enma Woody Erin ADAMS Primary Care Provider Allergies Active Allergy Reactions Severity Noted Date Comments Iodine Itching Medium 09/16/2016 Extreme itching and swelling to the eyes Penicillins Hives Medium 09/16/2016 Itching; hives (neck, arms, face) Medications Medication Sig Dispensed Refills Start End Date Status Date metoprolol tartrate Take 50 mg by 0 Discontinued (LOPRESSOR) 100 mg mouth 2 (two) 20 (Reorder) tablet times a day. alendronate Take 70 mg by 0 Susp ended (FOSAMAX) 70 MG mouth every 7 tablet days. Take in the morning with a full glass of water, on an empty stomach, and do not take anything else by mouth or lie down for the next 30 min. pramipexole Take 0.25 mg 0 Suspe nded (MIRAPEX) 0.25 MG by mouth tablet daily. gabapentin Take 100 mg 0 Suspend ed (NEURONTIN) 100 mg by mouth capsule nightly. traMADol (ULTRAM) 50 Take 50 mg by 0 Suspended mg tablet mouth every 8 (eight) hours as needed for moderate pain. dexlansoprazole Take 60 mg by 0 Suspended (DEXILANT) 60 mg mouth daily. capsule ZENPEP THERESE 8 5 Suspended 40,000-126,000- (OCHO) 9 168,000 unit C?PSULAS POR capsule,delayed LA BOCA CADA release(DR/EC) RUSSELL losartan-hydrochloro Take 1 tablet 1 Suspended thiazide (HYZAAR) by mouth 9 50-12.5 mg per daily. tablet hydrocodone/acetamin Take by 0 Suspended ophen (VICODIN ORAL) mouth. fenofibrate Take 130 mg 0 Suspen ded micronized (ANTARA) by mouth 130 MG capsule daily before breakfast. diltiazem CD Take 1 90 capsule 3 05/02/20 Discon tinued (CardIZEM CD) 120 MG capsule (120 9 20 24 hr mg total) by capsuleIndications: mouth daily. Essential hypertension magnesium oxide 400 Take 400 mg 0 Suspended mg magnesium tablet by mouth daily. clopidogreL (PLAVIX) Take 75 mg by 0 Suspended 75 mg tablet mouth daily. metoprolol tartrate Take 1 tablet 180 tablet 1 Suspended (LOPRESSOR) 50 mg (50 mg total) 0 tablet by mouth 2 (two) times a day. Additional Information Patient taking differently: 50 mg oral daily, Reported on 09/17/2020 Active Problems Problem Noted Date Malignant neoplasm of right lung 10/19/2019 Coronary artery disease involving [place] coronary galileo ry of [place] heart 09/20/2019 without angina pectoris Abdominal aortic [...] Encounters Date Type Specialty Care Team Description 10/23/2020 Anesthesia Event Cardiothoracic TuGay MD Surgery 10/23/2020 Hospital Cardiac Intensive [facility], Abdominal aortic Encounter Care [place] aneurysm (AAA) MD [place] without rupture Anjel Pindea MD ([facility]) (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) 09/17/2020 Travel 09/05/2020 Travel 05/02/2020 Telephone Cardiology Sandy Gaxoila, low hr and bp MA 03/20/2020 Office Visit Cardiology Chandan Cervantes, Abdominal a ortic aneurysm (AAA) without rupture (HCC) (Primary Dx); Coronary artery disease involving [place] coronary artery of [place] heart without angina pectoris 03/20/2020 Travel after 10/23/2019 Immunizations Name Administration Dates Next Due PFIZER COVID-19 MRNA VACCINATION 10/18/2020, 09/26/2020 Surgical History Surgery Date Site/Laterality Comments BLADDER [...] file Not on file Not on file Last Filed Vital Signs Vital Sign Reading Time Taken Comments Blood Pressure 122/50 10/24/2020 10:28 AM WATERSHED COORDINATOR Pulse 86 10/24/2020 10:28 AM WATERSHED COORDINATOR Temperature 36.8 C (98.2 F) 10/24/2020 3:00 AM WATERSHED COORDINATOR Respiratory Rate 21 10/24/2020 7:00 AM WATERSHED COORDINATOR Oxygen Saturation 98% 10/24/2020 7:00 AM WATERSHED COORDINATOR Inhaled Oxygen Concentration - - Weight 69.5 kg (153 lb 3.5 oz) 10/23/2020 10:52 PM WATERSHED COORDINATOR Height 152.4 cm (5') 09/17/2020 3:25 PM WATERSHED COORDINATOR Body Mass Index 29.92 09/17/2020 3:25 PM WATERSHED COORDINATOR Plan of Treatment Date Type Specialty Care Team Description 03/19/2021 Office Visit Cardiology Chandan Cervantes MD [address] [place], [place] [address] [phone] Health Maintenance Due Date Last Done Comments SHINGLES VACCINES (#1) 1986 65+ PNEUMOCOCCAL VACCINE (1 of 1 - PPSV23) 2001 INFLUENZA VACCINE 04/14/2020 COVID-19 VACCINE Completed 10/18/2020, 09/26/2020 Procedures The patient is currently admitted. The information in this section might not be complete until the patient is discharged. Procedure Name Priority Date/Time Associated Comments Diagnosis POC GLUCOSE Routine 10/24/2020 7:49 Results for this AM WATERSHED COORDINATOR procedure are i n the results section. ECG 12-LEAD Routine 10/24/2020 5:18 AM WATERSHED COORDINATOR POC GLUCOSE Routine 10/24/2020 3:53 Results for this AM WATERSHED COORDINATOR procedure are i n the results section. XR CHEST 1 VW PORTABLE Routine 10/24/2020 2:40 R esults for this AM WATERSHED COORDINATOR procedure are i n the results section. ESTIMATED GFR Routine 10/24/2020 1:36 Results fo r this AM WATERSHED COORDINATOR procedure are i n the results section. PHOSPHORUS LEVEL Routine 10/24/2020 1:36 Results for this AM WATERSHED COORDINATOR procedure are i n the results section. MAGNESIUM LEVEL Routine 10/24/2020 1:36 Results for this AM WATERSHED COORDINATOR procedure are i n the results section. HEPATIC FUNCTION PANEL Routine 10/24/2020 1:36 R esults for this AM WATERSHED COORDINATOR procedure are i n the results section. IONIZED CALCIUM Routine 10/24/2020 1:36 Results for this AM WATERSHED COORDINATOR procedure are i n the results section. BASIC METABOLIC PANEL Routine 10/24/2020 1:36 Re sults for this AM WATERSHED COORDINATOR procedure are i n the results section. CBC WITH PLATELET AND Routine 10/24/2020 1:20 Re sults for this DIFFERENTIAL AM WATERSHED COORDINATOR procedure are i n the results section. POC GLUCOSE Routine 10/23/2020 11:54 Results for this PM WATERSHED COORDINATOR procedure are i n the results section. URINALYSIS SCREEN AND Routine 10/23/2020 11:25 Re sults for this MICROSCOPY, WITH REFLEX PM WATERSHED COORDINATOR proc edure are in TO CULTURE the results section. URINE CULTURE Routine 10/23/2020 11:25 Results fo r this PM WATERSHED COORDINATOR procedure are i n the results section. CT ANGIOGRAM CHEST STAT 10/23/2020 8:29 Resul ts for this ABDOMEN PELVIS W AND OR PM WATERSHED COORDINATOR proc edure are in WITHOUT CONTRAST the results section. POC GLUCOSE Routine 10/23/2020 7:45 Results for this PM WATERSHED COORDINATOR procedure are i n the results section. ECG 12-LEAD STAT 10/23/2020 7:16 PM WATERSHED COORDINATOR MT INSERT Routine 10/23/2020 6:49 Abdominal aortic Results for this CATH,ART,PERCUT,SHORTTE PM WATERSHED COORDINATOR aneurysm (AAA) pr ocedure are in RM without rupture the results (HCC) section. XR CHEST 1 VW PORTABLE STAT 10/23/2020 6:35 R esults for this PM WATERSHED COORDINATOR procedure are i n the results section. LACTIC ACID LEVEL STAT 10/23/2020 6:23 Result s for this PM WATERSHED COORDINATOR procedure are i n the results section. LIPASE LEVEL STAT 10/23/2020 6:23 Results for this PM WATERSHED COORDINATOR procedure are i n the results section. AMYLASE LEVEL STAT 10/23/2020 6:23 Results fo r this PM WATERSHED COORDINATOR procedure are i n the results section. ESTIMATED GFR STAT 10/23/2020 6:23 Results fo r this PM WATERSHED COORDINATOR procedure are i n the results section. TYPE AND SCREEN STAT 10/23/2020 6:23 Results for this PM WATERSHED COORDINATOR procedure are i n the results section. PROTHROMBIN TIME WITH STAT 10/23/2020 6:23 Re sults for this INR PM WATERSHED COORDINATOR procedure are i n the results section. PHOSPHORUS LEVEL STAT 10/23/2020 6:23 Results for this PM WATERSHED COORDINATOR procedure are i n the results section. PARTIAL THROMBOPLASTIN STAT 10/23/2020 6:23 R esults for this TIME (PTT) PM WATERSHED COORDINATOR procedure are i n the results section. MAGNESIUM LEVEL STAT 10/23/2020 6:23 Results for this PM WATERSHED COORDINATOR procedure are i n the results section. IONIZED CALCIUM STAT 10/23/2020 6:23 Results for this PM WATERSHED COORDINATOR procedure are i n the results section. CBC HEMOGRAM STAT 10/23/2020 6:23 Results for this PM WATERSHED COORDINATOR procedure are i n the results section. BASIC METABOLIC PANEL STAT 10/23/2020 6:23 Re sults for this PM WATERSHED COORDINATOR procedure are i n the results section. XR CHEST EXTERNAL STUDY Routine 10/23/2020 2:35 Results for this PM WATERSHED COORDINATOR procedure are i n the results section. CT ABD/PELVIC EXTERNAL Routine 10/23/2020 2:33 R esults for this STUDY PM WATERSHED COORDINATOR procedure are i n the results section. ECG 12-LEAD Routine 09/17/2020 3:26 Coronary artery Results for this PM WATERSHED COORDINATOR disease involving procedure are in [place] coronary the results artery of [place] section. heart without angina pectoris CT HEAD EXTERNAL STUDY Routine 05/22/2020 9:26 R esults for this AM CDT procedure are i n the results section. CT CHEST ABD PEL Routine 05/22/2020 9:26 Results for this EXTERNAL STUDY AM CDT procedure are in the results section. after 10/23/2019 Results POC glucose (10/24/2020 7:49 AM WATERSHED COORDINATOR)Only the most recent of4 resultswithin the time period is included. Pathologist Sig nature POC glucose 164 (H) 65 - 99 mg/dL [facility] Comment: HOSPITAL Bridge Mechanic Name: Torres Gifford Device ID: [id number] Chartable: [facility] Notified RN Specimen Blood Performing Organization Address City/[facility] Code Phon e Number [facility] DEPARTMENT OF PATHOLOGY AND [address], [place] [address] GENOMIC [address] [address] XR Chest 1 Vw Portable (10/24/2020 2:40 AM WATERSHED COORDINATOR)Only the most recent of2 results within the time period is included. Specimen Narrative Performed At EXAMINATION: XR CHEST 1 VW PORTABLE [facility] CLINICAL HISTORY: resp insufficiency COMPARISON: 10/23/2020 IMPRESSION: Moderate heterogeneous bilateral lung pa renchymal opacities are stable. No pleural fluid or pneumothorax is seen . Heart size is within normal limits. Aortic tortuosity and calcification are again noted. The bones are osteopenic. There is no radiographic change. [id number] Procedure Note Interface, Radiology Results Incoming - 10/24/2020 6:30 AM WATERSHED COORDINATOR EXAMINATION: XR CHEST 1 VW PORTABLE CLINICAL HISTORY: resp insufficiency COMPARISON: 10/23/2020 IMPRESSION: Moderate heterogeneous bilateral lung pa renchymal opacities are stable. No pleural fluid or pneumothorax is seen . Heart size is within normal limits. Aort ic tortuosity and calcification are again noted. The bones are osteopenic. There is no radiographic change. [id number] Performing Organization Address City/[facility]/ZIP Code Phon e Number [facility] [address] [place] [id number] Estimated GFR (10/24/2020 1:36 AM WATERSHED COORDINATOR)Only the most recent of2 resultswithin the time period is included. Estimated GFR 66 mL/min/1.73 [facility] Comment: m2 HOSPITAL Catergory Units Interpretation G1 >=90 Normal [...] lity Initiative (NKF-KDOQI) published in 2014. Specimen Performing Organization Address City/[facility] Phon e Number [facility] DEPARTMENT OF PATHOLOGY AND [address] [place] [address] Phosphorus level (10/24/2020 1:36 AM WATERSHED COORDINATOR)Only the most recent of2 resultswithin the time period is included. Pathologist Sig nature Phosphorus 3.8 2.4 - 4.5 mg/dL [facility] Specimen Blood Performing Organization Address City/[facility] Phon e Number [facility] DEPARTMENT OF PATHOLOGY AND [address] [place] [address] [address] Magnesium level (10/24/2020 1:36 AM WATERSHED COORDINATOR)Only the most recent of2 resultswithin the time period is included. Pathologist Sig nature Magnesium 2.8 (H) 1.6 - 2.4 mg/dL [facility] Specimen Blood Performing Organization Address [facility] Phon e Number [facility] DEPARTMENT OF PATHOLOGY AND [address] [place] [phone] Ionized calcium (10/24/2020 1:36 AM WATERSHED COORDINATOR)Only the most recent of2 resultswithin the time period is included. Pathologist Sig nature pH 7.48 [facility] Ionized calcium 1.11 1.11 - 1.32 mmol/L [facility] Specimen Blood Performing Organization Address City/[facility] Phon e Number [facility] DEPARTMENT OF PATHOLOGY AND [address], [place] [address] [address] Hepatic function panel (10/24/2020 1:36 AM WATERSHED COORDINATOR) Albumin 2.5 (L) 3.5 - 5.0 [facility] g/dL HOSPITAL Total bilirubin 0.3 0.0 - 1.2 [facility] mg/dL [facility] Bilirubin direct <0.2 0.0 - 0.3 [facility] mg/dL HOSPITAL Alkaline phosphatase 127 (H) 35 - 104 U/L [facility] Protein 5.8 (L) 6.3 - 8.3 [facility] Comment: g/dL HOSPITAL - 4.6-7.0 g/dL 1 week 4.4-7.6 g/dL 7 months-1year 5.1-7.3 g/dL 1-2 years 5.6-7.5 g/dL >3 years 6.0-8.0 g/dL 18-150 6.3-8.3 g/dL ALT 18 5 - 50 U/L [facility] AST 14 10 - 35 U/L [facility] Specimen Blood Performing Organization Address City/[facility] Phon e Number [facility] DEPARTMENT OF PATHOLOGY AND [address] [place] [phone] [address] [address] Basic metabolic panel (10/24/2020 1:36 AM WATERSHED COORDINATOR)Only the most recent of2 results within the time period is included. Pathologist Sig nature Sodium 135 135 - 148 mEq/L [facility] L Potassium 3.6 3.5 - 5.0 mEq/L [facility] L Chloride 103 98 - 112 mEq/L [facility] CO2 21 (L) 24 - 31 mEq/L [facility] Anion gap 11@ANIO 7 - 15 mEq/L [facility] BUN 13 8 - 23 mg/dL [facility] Creatinine 0.82 0.50 - 0.90 mg/dL [facility] MISSY Glucose 173 (H) 65 - 99 mg/dL [facility] Calcium 8.3 (L) 8.8 - 10.2 mg/dL [facility] Specimen Blood Performing Organization Address City/[facility] Phon e Number [facility] DEPARTMENT OF PATHOLOGY AND [address] [place] [address] [address] [address] CBC with platelet and differential (10/24/2020 1:20 AM WATERSHED COORDINATOR) Pathologist [facility] WBC 19.66 (H) 4.50 - 11.00 [facility] k/uL HOSPITAL RBC 3.52 (L) 4.20 - 5.50 [facility] m/[facility] HGB 10.3 (L) 12.0 - 16.0 [facility] gdL [facility] HCT 31.7 (L) 37.0 - 47.0 % [facility] MCV 90.1 82.0 - 100.[address] [facility] MCH 29.3 27.0 - 34.0 pg [facility] MCHC 32.5 31.0 - 37.0 [facility] - SD 43.1 37.0 - 55.0 [facility] MPV 9.4 8.8 - 13.2 [facility] Platelet count 142 (L) 150 - 400 k/uL [facility] Nucleated RBC 0.00 /100 WBC [facility] Neutrophils 92.5 (H) 39.0 - 69.0 % [facility] Lymphocytes 4.5 (L) 25.0 - 45.0 % [facility] Monocytes 0.7 0.0 - 10.0 % [facility] Eosinophils 0.0 0.0 - 5.0 % [facility] Basophils 0.2 0.0 - 1.0 % [facility] Immature granulocytes 2.1 0.0 - 1.0 % [facility] (H)Comment: HOSPITAL "Immature granulocytes" (promyelocytes , myelocytes, metamyelocytes ) Specimen Blood Performing Organization Address City/[facility] Phon e Number [facility] DEPARTMENT OF PATHOLOGY AND [address], [place] [address] [address] Urinalysis screen and microscopy, with reflex to culture (10/23/2020 11:25 PM WATERSHED COORDINATOR) Pathologist [facility] Specimen site Catheterized [facility] Color, UA Straw [facility] Appearance, UA Clear [facility] Specific gravity, UA S3.000 (H) 1.001 - 1.035 [facility] pH, UA 6.0 5.0 - 8.5 [facility] Protein, UA 1+ (A) Negative [facility] Glucose, UA Negative Negative [facility] Ketones, UA Negative Negative [facility] Bilirubin, UA Negative Negative [facility] Blood, UA Small (A) Negative [facility] Nitrite, UA Negative Negative [facility] Urobilinogen, UA <2.0 <2.0 [facility] Leukocyte esterase, Negative Negative [facility] Epithelial cells, UA <1 /HPF [facility] WBC, UA 4 0 - 4 /HPF [facility] RBC, UA 4 0 - 5 /HPF [facility] Bacteria, UA None seen None seen [facility] Yeast, UA None seen [facility] Yeast with None seen [facility] pseudohyphae, HOSPITAL Specimen Urine Performing Organization Address City/[facility] Phon e Number [facility] DEPARTMENT OF PATHOLOGY AND [address] [place] [address] 0 [place] [address] Urine culture (10/23/2020 11:25 PM WATERSHED COORDINATOR) Pathologist Sig nature Urine culture SEE COMMENTComment: [facility] Bacteriuria screen HOSPITAL negative. Specimen Performing Organization Address City/[facility] Phon e Number [facility] DEPARTMENT OF PATHOLOGY AND [address] [place] [address] [address] [place] [id number] Angiogram Chest W Contrast Abdomen W Contrast Pelvis W Contrast (10/23/2020 8:29 PM WATERSHED COORDINATOR) Specimen Narrative Performed At EXAMINATION: CT ANGIOGRAM CHEST ABDOMEN PELVIS W AND OR WITHOUT HM [facility] CONTRAST CLINICAL HISTORY: TAAA with concern fo r rupture TECHNIQUE: Multiple CT angiographic images of the ches t, abdomen, and pelvis were obtained during intravenous administration of contrast. Multiple computerized reformatted images as well as 3- D volume rendered images were also obtained. CT imaging was performed with iterative reconstruction techniques and/or automated exposure control to reduce rad iation dose. COMPARISON: CT of the abdomen and pelvis from [facility] dated 11/02/2020. FINDINGS: CHEST: Lungs and airways: There is a heterogeneous nodule wit h irregular margins of the right upper lobe on series 4 image 16 m easuring 1.7 x 2.2 cm. There are additional scattered nodul es in the lungs bilaterally. More confluent slightly patchy opacities with some ass ociated air bronchograms are present in the lower lo bes bilaterally. There is centrilobular emphysema. Pleura: There are small bilateral pleura l effusions. Mediastinum and lymph nodes: There is a soft tissue de nsity along the left inferior mediastinal surface adjacent to the aneu rysm of the distal thoracic aorta. Heterogeneous soft tissue density exte nds medially along the superior margin of the aneurysm. Cardiovascular: The heart is within normal limits of s ize. No pericardial effusion is identified. There are multives rekha coronary artery complications. Other: ABDOMEN: Liver: The liver is normal. No focal mas s. Gallbladder/Biliary: The gallbladder is normal. There is no evidence of intra or extrahepatic biliary ductal dil atation. Spleen: The spleen is not enlarged. Pancreas: There is moderate atrophy of t he pancreatic parenchyma. Adrenal Glands: The adrenal glands are u nremarkable. Kidneys: The kidneys are mildly atrophic bilaterally. No obstructing stones or hydronephrosis identified in either kidney. There is a partially exophytic 1 cm heterogeneously enhancing les ion from the upper pole the left kidney as seen on series 6 image 84. Nodes: No enlarged retroperitoneal or me senteric lymphadenopathy. Bowel: No bowel obstruction or inflammat ory changes. Ascites/fluid collections: No ascites or fluid collections. PELVIS: The bladder is decompressed by a Rojas c atheter. MUSCULOSKELETAL: There is an old healed fracture of the left inferior p ubic ramus. There are severe degenerative changes in the lumbar spine. T here are numerous anterior compression deformities in the thoracic spine including T7, T9, and T12 which are of indeterminate age. CTA: The aortic root is approximately 3.1 cm in diameter. At the level of the pulmonary artery trunk the ascendi ng thoracic aorta is 3.3 x 3.4 cm in cross-sectional dimensions. The tra nsverse aorta is 2.7 cm in diameter. The level of the pulmonary artery trunk the descending thoracic aorta is 2.7 x 2.9 c m. The distal descending thoracic aorta at the level of t he diaphragmatic hiatus is focally tortuous as seen on series 302B imag e 64. At this region there is an area of mild luminal narrowing. Jus t distal to this level there is a predominantly fusiform shaped aneurysm which is 4.1 x 5.8 cm in size and exte nding along the length of approximately 7.3 cm. The distal esophagus is displaced anteriorly by the an eurysm and there is partial herniation of abdominal fat through an karl cent hiatal hernia. There is no evidence of active extravasation from the aneurysm the delayed images. Soft tissue density along the superior left side of the aneurysm is similar in size and appearance compared to CT from the same day at 2:33 PM. No dissection flap is identified in the thoracic aorta . There are moderate atherosclerotic ossifications throughout the thoracic aorta. The branching pattern of the great arteries as they ar ise from the aortic arch is. The abdominal aorta is patent. Severe atherosclerotic ossifications are present throughout the abdominal aorta. No dissection flap is identified in the abdominal aorta. 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 There are severe plaques at the origin of the renal ar teries bilaterally. 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 2.Evaluation is limited due to the anatomic location o f the aneurysm as well as an adjacent hiatal hernia. Within this limitat ion no active contrast extravasation is identified. Soft tissue dens ity most prominent along the superior left side of the aneurysm could reflect hematoma of indeterminate age. Other differential considerations include site of disease treatment relat ed to the patient's lung cancer, lymphadenopathy, and lung parenchymal process. 3.Centrilobular emphysema. 4.Pulmonary nodules may be related to patient's histor y of lung cancer. Additional patchy consolidative changes in the lung ba ses may reflect site of disease or infectious/inflammato ry process. Findings were discussed with and acknowledged by the joanna spence taking care of the patient, Bashir at 10/23/2020 9:10 PM. [id number] Procedure Note Hm Interface, Radiology Results Incoming - 10/23/2020 9:16 PM WATERSHED COORDINATOR EXAMINATION: CT ANGIOGRAM CHEST ABDOMEN PELVIS W AND OR WITHOUT CONTRAST CLINICAL HISTORY: TAAA with concern for rupture TECHNIQUE: Multiple CT angiographic imag es of the chest, abdomen, and pelvis were obtained during intravenous administration of contrast. Multiple computerized reformatted images as well as 3-D volume rendered images were also obtained. CT imaging was performed with iterative reconstruction techniques and/or automated exposure control to reduce radiation dose. COMPARISON: CT of the abdomen and pelvi s from outside facility dated 11/02/2020. FINDINGS: CHEST: Lungs and airways: There is a heterogene ous nodule with irregular margins of the right upper lobe on series 4 image 16 measuring 1.7 x 2.2 cm. There are additional scattered nodules in the lungs bilaterally. More confluent slightly patchy opacities with some associated air bronchograms are present in the lower lobes bilaterally. There is centrilobular emphysema. Pleura: There are small bilateral pleura l effusions. Mediastinum and lymph nodes: There is a soft tissue density along the left inferior mediastinal surface adjacent to the aneurysm of the distal thoracic aorta. Heterogeneous soft tissue density extends medially along the superior margin of the aneurysm. Cardiovascular: The heart is within norm al limits of size. No pericardial effusion is identified. There are multivessel coronary artery complications. Other: ABDOMEN: Liver: The liver is normal. No focal mas s. Gallbladder/Biliary: The gallbladder is normal. There is no evidence of intra or extrahepatic biliary ductal dilatation. Spleen: The spleen is not enlarged. Pancreas: There is moderate atrophy of t he pancreatic parenchyma. Adrenal Glands: The adrenal glands are u nremarkable. Kidneys: The kidneys are mildly atrophic bilaterally. No obstructing stones or hydronephrosis identified in either kidney. There is a partially exophytic 1 cm heterogeneously enhancing lesion from the upper pole the left kidney as seen on series 6 image 84. Nodes: No enlarged retroperitoneal or me senteric lymphadenopathy. Bowel: No bowel obstruction or inflammat ory changes. Ascites/fluid collections: No ascites or fluid collections. PELVIS: The bladder is decompressed by a Rojas c atheter. MUSCULOSKELETAL: There is an old healed fracture of the l eft inferior pubic ramus. There are severe degenerative changes in the lumbar spine. There are numerous anterior compression deformities in the thoracic spine including T7, T9, and T12 which are of indeterminate age. CTA: The aortic root is approximately 3.1 cm in diameter. At the level of the pulmonary artery lidya nk the ascending thoracic aorta is 3.3 x 3.4 cm in cross-sectional dimensions. The transverse aorta is 2.7 cm in diameter. The level of the pulmonary artery trunk the descending thoracic aorta is 2.7 x 2.9 cm. The distal descending thoracic aorta at the level of the diaphragmatic hiatus is focally tortuous as seen on series 302B image 64. At this region there is an area of mild luminal narrowing. Just distal to this level there is a predominantly fusiform shaped aneurysm which is 4.1 x 5.8 cm in size and extending along the length of approximately 7.3 cm. The distal esophagus is displaced anteri tracee by the aneurysm and there is partial herniation of abdominal fat through an adjacent hiatal hernia. There is no evidence of active extravasa tion from the aneurysm the delayed images. Soft tissue density along the superior left side of the aneurysm is similar in size and appearance compared to CT from the same day at 2:33 PM. No dissection flap is identified in the thoracic aorta. There are moderate atherosclerotic ossifications throughout the thoracic aorta. The branching pattern of the great arteries as they arise from the aortic arch is. The abdominal aorta is patent. Severe at herosclerotic ossifications are present throughout the abdominal aorta. No dissection flap is identified in the abdominal aorta. 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 There are severe plaques at the origin of the renal arteries bilaterally. 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 2.Evaluation is limited due to the anato jaylyn location of the aneurysm as well as an adjacent hiatal hernia. Within this limitation no active contrast extravasation is identified. Soft tissue density most prominent along the superior left side of the aneurysm could reflect hematoma of indet erminate age. Other differential considerations include site of disease treatment related to the patient's lung cancer, lymphadenopathy, and lung parenchymal process. 3.Centrilobular emphysema. 4.Pulmonary nodules may be related to kaila gabriele's history of lung cancer. Additional patchy consolidative changes in the lung bases may reflect site of disease or infectious/inflammatory process. Findings were discussed with and acknowl edged by the nurse taking care of the patient, Krysten at 10/23/2020 9:10 PM. [id number] Performing Organization Address City/State/ZIP Code [facility] e Number [facility] [address] [place] [address] Arterial Line Insertion (10/23/2020 6:49 PM WATERSHED COORDINATOR) Narrative Performed At Alexis Kang NP 6:50 PM Arterial Line Insertion Date/Time: 10/23/2020 6:50 PM Performed by: Alexis Kang NP Authorized by: Alexis Kang NP Consent: Consent obtained: Verbal Consent given by: Patient Risks discussed: Bleeding, infectio n, ischemia, pain and repeat procedure Robeline protocol: Immediately prior to procedure a time out was called: yes Patient identity confirmed: Arm band, hospital-as signed identification number and verbally with patient Indications: Indications: hemodynamic monitoring Pre-procedure details: Skin preparation: 2% Chlorhexidine Preparation: Patient was prepped and draped in sterile fashion Anesthesia (see MAR for exact dosages): Anesthesia method: Local infiltrati on Local anesthetic: Lidocaine 1% w/o epi Procedure details: Location: R radial Delvis's test performed: yes Delvis's test abnormal: no Needle gauge: 20 G Placement technique: Seldinger Ultrasound guidance: yes Ultrasound guidance: images not saved electronically Number of attempts: 1 Transducer: waveform confirmed Post-procedure details: Post-procedure: Secured with tape, sterile dressi ng applied and sutured CMS: Normal Patient tolerance of procedure: Dominic erated well, no immediate complications Partial thromboplastin time, activated (10/23/2020 6:23 PM WATERSHED COORDINATOR) PTT 30.1 23.0 - 36.0 [facility] Comment: [facility] PTT therapeutic range for unfractionated heparin is 61.0-112.0 seconds which corresponds to Anti-Xa 0.3-0.7 U/ml. Specimen Blood Performing Organization Address City/State/ZIP Code Phon e Number [facility] DEPARTMENT OF PATHOLOGY AND [address] [place], [place] [phone] GENOMIC MEDICINE [facility] [address] [place] [id number] Prothrombin time with INR (10/23/2020 6:23 PM WATERSHED COORDINATOR) Prothrombin time 14.1 11.5 - 14.5 [facility] INR 1.1 [place] Comment: [facility] International Normalized Ratio (INR) is a [facility] HOSPITAL monitoring tool for patients who are stable on oral anticoagulant therapy. An INR of 2.0-3.0 is suggested for deep vein thrombosis/pulmonary embolism. Specimen Blood Performing Organization Address City/[facility] Phon e Number [facility] DEPARTMENT OF PATHOLOGY AND [address] [place] [address] [phone] [address] CBC hemogram (10/23/2020 6:23 PM WATERSHED COORDINATOR) Pathologist Sig nature WBC 19.96 (H) 4.50 - 11.00 k/uL [facility] RBC 3.80 (L) 4.20 - 5.50 m/uL [facility] HGB 11.3 (L) 12.0 - 16.0 g/dL [facility] HCT 34.6 (L) 37.0 - 47.0 % [facility] MCV 91.1 82.0 - 100.0 fL [facility] MCH 29.7 27.0 - 34.0 pg [facility] MCHC 32.7 31.0 - 37.0 g/dL [facility] RDW - SD 44.0 37.0 - 55.0 fL [facility] MPV 9.1 8.8 - 13.2 fL [facility] Platelet count 157 150 - 400 k/uL [facility] Nucleated RBC 0.00 /100 WBC [facility] Specimen Blood Performing Organization Address [facility] Phon e Number [facility] DEPARTMENT OF PATHOLOGY AND [address] [place] [address] [phone] [address] Type and screen (10/23/2020 6:23 PM WATERSHED COORDINATOR) Pathologist Sig nature ABO grouping O [facility] Rh type POS [facility] Antibody screen (gel) NEG [facility] Specimen Blood Performing Organization Address City/[facility]/ZIP [facility] Phon e Number [facility] DEPARTMENT OF PATHOLOGY AND [address] [place] [address] [phone] [address] Lipase level (10/23/2020 6:23 PM WATERSHED COORDINATOR) Pathologist Sig nature Lipase 22 13 - 60 U/L [facility] Specimen Performing Organization Address City/[facility]/ZIP [facility] Phon e Number [facility] DEPARTMENT OF PATHOLOGY AND [address] [place] [phone] [facility] [address] [place] [address] Lactic acid level (10/23/2020 6:23 PM WATERSHED COORDINATOR) Pathologist Sig nature Lactic acid 2.1 0.5 - 2.2 mmol/L [facility] Specimen Performing Organization Address City/State/ZIP Code Phon e Number [facility] DEPARTMENT OF PATHOLOGY AND [address] [place] [phone] [facility] [address] [place] [address] Amylase level (10/23/2020 6:23 PM WATERSHED COORDINATOR) Pathologist Sig nature Amylase 96 28 - 100 U/L [facility] Specimen Performing Organization Address City/[facility]/ZIP Code Phon e Number [facility] DEPARTMENT OF PATHOLOGY AND [address] [place] [address] [phone] [address] XR Chest External Study (10/23/2020 2:35 PM WATERSHED COORDINATOR) Specimen Narrative Performed At This exam was not acquired at a [facility] facility and has not been [facility] interpreted by a [facility] Provider. T he exam was imported into our imaging system. Performing Organization Address City/[facility]/ZIP [facility] Phon e Number [facility] [address] [place] [address] CT Abd/Pelvic External Study (10/23/2020 2:33 PM WATERSHED COORDINATOR) Specimen Narrative Performed At This exam was not acquired at a [facility] facility and has not been [facility] interpreted by a Hindu Provider. T he exam was imported into our imaging system. Performing Organization Address [facility] Phon e Number [facility] [address] [place] [address] ECG 12 lead (09/17/2020 3:26 PM WATERSHED COORDINATOR) Pathologist Sig nature Ventricular rate 70 [facility] Atrial rate 70 [facility] MT interval 196 [facility] QRSD interval 84 [facility] QT interval 410 [facility] QTC interval 442 [facility] P axis 1 48 [facility] QRS axis 1 18 [facility] T wave axis 41 [facility] EKG impression Normal sinus [facility] rhythm-Normal ECG-In automated comparison with ECG of 31-MAY-2019 14:46,-No significant change was found- Specimen Narrative Performed At This result has an attachment that is no t available. Performing Organization Address City/State/ZIP Code Phon e Number [facility] [address] [place] [address] CT Chest Abdomen Pelvis External Study (05/22/2020 9:26 AM CDT) Specimen Narrative Performed At This exam was not acquired at a [facility] t facility and has not been [facility] interpreted by a Hindu Provider. T he exam was imported into our imaging system. Performing Organization Address City/State/ZIP Code Phon e Number [facility] [address] [place] [address] CT Head External Study (05/22/2020 9:26 AM CDT) Specimen Narrative Performed At This exam was not acquired at a [facility] facility and has not been [facility] interpreted by a Hindu Provider. T he exam was imported into our imaging system. Performing Organization Address City/[facility] Code Phon e Number [facility] [address] [place] [address] after 10/23/2019 Insurance Payer Benefit Plan / Subscriber ID Effective Dates Phone Addre ss Type Group MEDICARE MEDICARE PART A [id number] 2004-Present [place] B MEDICAID MEDICAID [id number] 2011-Present Med icaid Advance Directives For more information, please contact: [phone] Type Date Recorded Patient [employer] Explanati on Advance Directives, Living Will and Medical Power of Assistant [employer]
--- OUTSIDE RECORDS SUMMARY | 2020-10-24 10:40 | XMS REPORT | Continuity of Care Document ---
:1935 Author Organization [facility] t Address [address] [place] [address] Care Team Providers Name Role Phone Woody Erin ADAMS Primary Care Physician Tu ALMEIDA Attending Clinician Elmo Joseph MD Attending Clinician Edwin ALMEIDA T. Attending Clinician Barry ALMEIDA, R. Attending Clinician Minor ALMANZAR Attending Clinician Unavailable ERICA Attending Clinician Unavailable APRYL Attending Clinician Unavailable Payers Payer Name Policy Type Policy Effective Date Expiration Date Sour ce Number MEDICAREMEDICARE PART [id number] 2004 Brett Driscoll AND 00:00:00 [place] [place] [id number] 2003 [place] MEDICAIDMEDICAIDxxxxx [id number] 2011 Cora willoughby 20430/09/2011-[facility] 00:00:00 Met yuliana rendon Problems Condition Condition Condition Status Onset Resolution Last Treating Co mments Source Name Details Category Date Date Treatment Clinician Date 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 Discussed with the patient our general repairer to wait until 5.5 cm and the [...] 00:00: st 00 Routine Routine Disease Active [place] adult adult 09-16 [facility] 00:00: st maintenanc maintenanc 00 e [...] in Reaction Available [facility] Iodine Adverse Active Info Not [facility] Reaction Available [facility] Family History Family Member Diagnosis Comments Start Date Stop Date Source Natural brother Heart disease Kale Duong Natural father Heart disease Catracho Duong Social History Social Habit Start Date Stop Date Quantity Comments Source Sex Assigned At [facility] ethodist Tobacco use and 2020-09-17 2020-09-17 Never used Catracho Castaneda ethodist exposure 00:00:00 00:00:00 Alcohol intake 2020-09-17 2020-09-17 Current Catracho Santana thodist 00:00:00 00:00:00 non-drinker of alcohol (finding) Smoking Status Start Date Stop Date Source Never smoker Hayden Kennyis t Medications Ordered Filled Start Stop Current Ordering Indication Dosage Frequency Signature Comments Components Source Medication Medication Date Date Medication? Clinician (SIG) Name Name alendronate Yes 70mg Q1W Take 70 mg Hayden (FOSAMAX) 2-09 by mouth Method i 70 MG 18:16: every 7 st tablet 44 days. Take in the morning with a full glass of water, on an empty stomach, and do not take anything else by mouth or lie down for the next 30 min. pramipexole Yes .25mg QD Take 0.25 Hayden (MIRAPEX) 2-09 mg by Methodi 0.25 MG 18:16: mouth st tablet 44 daily. gabapentin 0 Yes 100mg QD Take 100 [place] (NEURONTIN) 2-09 mg by Methodi 100 mg 18:16: mouth st capsule 44 nightly. traMADol 0 Yes 50mg Q8H Take 50 mg Cora ston (ULTRAM) 50 2-09 by mouth Meth david mg tablet 18:16: every 8 st 44 (eight) hours as needed for moderate pain. dexlansopra Yes 60mg QD Take 60 mg Hayden zole 2-09 by mouth Methodi (DEXILANT) 18:16: daily. st 60 mg 44 capsule hydrocodone Yes Take by Cora ston /acetaminop 2-09 mouth. Method i hen 18:16: st (VICODIN 44 ORAL) fenofibrate 0 Yes 130mg QD Take 130 [place] micronized 2-09 mg by Methodi (ANTARA) 18:16: mouth st 130 MG 44 daily capsule before breakfast. magnesium 2020-0 Yes 400mg QD Take 400 Cora ston oxide 400 2-09 mg by Methodi mg 18:16: mouth st magnesium 44 daily. tablet clopidogreL 2020-0 Yes 75mg QD Take 75 mg Hayden (PLAVIX) 75 2-09 by mouth Meth david mg tablet 18:16: daily. st 44 metoprolol 2019- No 50mg Q.5D Take 50 mg Hayden tartrate 05-02 by mouth 2 Meth david (LOPRESSOR) 16:03: 00:00 (two) st 100 mg 01 :00 times a tablet day. metoprolol Yes 50mg Q.5D Take 1 [place] tartrate 05-02 tablet (50 Metho di (LOPRESSOR) 00:00: mg total) s t 50 mg 00 by mouth 2 tablet (two) times a day. diltiazem 2019- No Essential 120mg QD Take 1 [place] CD 05-31 hypertensio capsule Meth david (CardIZEM 00:00: 00:00 n ([address] CD) 120 MG 00 :00 total) by 24 hr mouth capsule daily. losartan- Yes 1{tbl} QD Take 1 [place] drochloroth 8-21 tablet by Met hodi iazide 00:00: mouth st (HYZAAR) 00 daily. 50-12.5 mg per tablet ZENPEP Yes THERESE 8 [place] 40,000-126, 8-14 (OCHO) Method i 000- 00:00: C?PSULAS st 168,000 00 POR LA unit BOCA CADA capsule,del RUSSELL ayed release(DR/ EC) Flonase Flonase Yes Na Woody [address] [facility] each [facility] Na Woody [address] [facility] Pancrelipas Pancrelipas Yes Na Woody not [facility] e e defined [facility] - (Lip-Prot-A (Lip-Prot-A M emoria myl) myl) l Outpati ent Clinics Cardizem Cardizem Yes Na Woody [address] [facility] Losartan Losartan Yes Na Woody TAKE [address] Potassium-H Potassium-H TABLET BY [facility] - CTZ CTZ MOUTH ONCE Memoria EVERY DAY l Outpati ent Clinics Zenpep Zenpep Yes Na Woody [address] with [facility] - breakfast, Memoria lunch and l dinnner Outpati and 1 ent capsule Clinics with snacks Dexilant Dexilant Yes Na Woody TAKE [address] CAPSULE BY [facility] M[facility]TH ONCE [facility]oria EVERY DAY l [facility] Magnesium Magnesium Yes Na Woody [address] [facility] Oxide Oxide as needed [facility] Gabapentin Gabapentin Yes Na Woody TOME LUNA [facility] CAPSULA [facility] TODOS LOS Memoria NORIEGA l [facility] Metoprolol Metoprolol Yes Na Woody [address] [address] Tartrate Tartrate with food Dayana kes - [facility] Hyzaar Hyzaar Yes Na Woody [address] [facility] Plavix Plavix Yes Na Woody [address] [facility] Cardizem Cardizem Yes Na Woody TOME LUNA [facility] TABLETA [facility] - POR VIA Memoria ORAL TODOS l LOS NORIEGA [facility] Pramipexole Pramipexole Yes Na Woody TOME LUNA [facility] Dihydrochlo Dihydrochlo TABLETA [facility] - ride ride POR VIA Memoria ORAL AL l ACOSTARSE [facility] Neurontin Neurontin Yes Na Woody [address] [facility] Mirapex Mirapex Yes Na Woody [address] before [facility] - bedtime Memoria l [facility] Clonidine Clonidine Yes Na Woody [address] [facility] HCl HCl at bedtime [facility] Alendronate Alendronate Yes Na Woody [address] Sodium Sodium [facility]ics Zenpep Zenpep Yes Na Woody as [facility] directed [facility] Magnesium Magnesium Yes Na Woody [address] Oxide Oxide as needed [facility] Clopidogrel Clopidogrel Yes Na Woody TAKE [address] [facility] Bisulfate Bisulfate TABLET BY [facility] MOUTH Memoria EVERY DAY l [facility] Alendronate Alendronate Yes Na Woody TOME LUNA [facility] Sodium Sodium TABLETA [facility] - POR VIA Memoria ORAL LUNA l [facility] Metoprolol Metoprolol Yes Na Woody TAKE [address] [facility] Tartrate Tartrate TABLET BY Dayana kes - MOUTH TWO Memoria TIMES l DAILY [facility] Immunizations Ordered Immunization Filled Immunization Date Status Commen ts Source Name Name PFIZER COVID-19 MRNA 2020-10-18 Completed [place] VACCINATION 00:00:00 [facility] PFIZER COVID-19 MRNA 2020-09-26 Completed [place] VACCINATION 00:00:00 [facility] Vital Signs Vital Name Observation Time Observation Value Comments Source Systolic blood 2020-10-24 10:28:00 122 mm[Hg] Kasandrato n [facility] Day pressure Diastolic blood 2020-10-24 10:28:00 50 mm[Hg] Kasandrat on L[facility] Day pressure Heart rate 2020-10-24 10:28:00 86 /min Catracho Duong Respiratory rate 2020-10-24 07:00:00 21 /min Kasandra Duong Oxygen saturation in 2020-10-24 07:00:00 98 /min Catracho Duong Arterial blood by Pulse oximetry Body temperature 2020-10-24 03:00:00 36.78 Eunice Kasandra Duong Body weight 2020-10-23 22:52:00 69.5 kg Catracho Duong BMI 2020-10-23 22:52:00 29.92 kg/m2 Catracho Duong Body height 2020-09-17 15:25:00 152.4 cm Catracho Duong Procedures Procedure Date / Time Performing Clinician Source Performed POC GLUCOSE 2020-10-24 07:49:00 Anjel Pineda Meth odist ECG 12-LEAD 2020-10-24 05:18:33 Sherri Guevara POC GLUCOSE 2020-10-24 03:53:00 Huong Joseph ethodist [place] XR CHEST 1 VW PORTABLE 2020-10-24 02:40:00 Sherri Guevara BASIC METABOLIC PANEL 2020-10-24 01:36:00 Sherri Guevara IONIZED CALCIUM 2020-10-24 01:36:00 Sherri Guevara HEPATIC FUNCTION PANEL 2020-10-24 01:36:00 Sherri Guevara MAGNESIUM LEVEL 2020-10-24 01:36:00 Sherri Guevara PHOSPHORUS LEVEL 2020-10-24 01:36:00 Sherri Guevara ESTIMATED GFR 2020-10-24 01:36:00 Sherri Guevara on [facility] CBC WITH PLATELET AND 2020-10-24 01:20:00 Sherri Guevara L[facility] Day DIFFERENTIAL POC GLUCOSE 2020-10-23 23:54:00 Opal Huong Castaneda ethodist [place] URINALYSIS SCREEN AND 2020-10-23 23:25:00 Alexis Kang on L[facility] Day MICROSCOPY, WITH REFLEX Dhansukhlal TO CULTURE URINE CULTURE 2020-10-23 23:25:00 Alexis Kang Met hodist [facility] CT ANGIOGRAM CHEST 2020-10-23 20:29:42 Mehran Chavez ethodist ABDOMEN PELVIS W AND OR WITHOUT CONTRAST POC GLUCOSE 2020-10-23 19:45:00 ElverzafarHuong ethodist [place] ECG 12-LEAD 2020-10-23 19:16:13 Alexis Kang Met hodist Dhans[place]al NV INSERT 2020-10-23 18:49:52 Alexis Kang Met hodist CATH,ART,PERCUT,SHORTTERM Dhansukhlal XR CHEST 1 VW PORTABLE 2020-10-23 18:35:00 Alexis Kang L[facility] Day Dhansukhlbarry PROTHROMBIN TIME WITH INR 2020-10-23 18:23:00 Alexis Kang L[facility] Day Annansukhlal TYPE AND SCREEN 2020-10-23 18:23:00 Alexis Kang Met hodist Dh[place] ESTIMATED GFR 2020-10-23 18:23:00 Alexis Kang Met hodist Annansukhlal AMYLASE LEVEL 2020-10-23 18:23:00 Alexis Kang Met hodist Dh[place] LIPASE LEVEL 2020-10-23 18:23:00 Alexis Kang Met hodist Annansukhlal LACTIC ACID LEVEL 2020-10-23 18:23:00 Alexis Kang ethodist Dhansukhlal BASIC METABOLIC PANEL 2020-10-23 18:23:00 [facility] 2020-10-23 18:23:00 Alexis Kang Met hodist [facility] IONIZED CALCIUM 2020-10-23 18:23:00 [facility]is [facility] 2020-10-23 18:23:00 Alexis Kang [facility]od[facility] PARTIAL THROMBOPLASTIN 2020-10-23 18:23:00 Alexis Kang ton L[facility] Day TIME (PTT) Dhansukal PHOSPHORUS LEVEL 2020-10-23 18:23:00 Alexis Kang Nh thodist [facility] XR CHEST EXTERNAL STUDY 2020-10-23 14:35:[address] ABD/PELVIC EXTERNAL 2020-10-23 14:33:00 Huong Joseph STUDY [place] ECG 12-LEAD 2020-09-17 15:26:[address] CHEST ABD PEL EXTERNAL 2020-05-22 09:26:00 Huong Joseph STUDY [facility] CT HEAD EXTERNAL STUDY 2020-05-22 09:26:00 Huong Joseph [place] Plan of Care Planned Activity Planned Date Details Comments Source Future Scheduled 2020-04-14 INFLUENZA VACCINE Kale Duong Test 00:00:00 [code = INFLUENZA VACCINE] Future Scheduled 2001 65+ PNEUMOCOCCAL Catracho Coxist Test 00:00:00 VACCINE (1 of 1 - PPSV23) [code = 65+ PNEUMOCOCCAL VACCINE (1 of 1 - PPSV23)] Future Scheduled 1986 SHINGLES VACCINES (#1) Zaki Duong Test 00:00:00 [code = SHINGLES VACCINES (#1)] Encounters Start End Encounter Admission Attending Care Care Encounter Source Date/Time Date/Time Type Type Clinicians Facility Department ID 2019-10-26 Outpatient [facility] MED [id number] BL 15:55:40 2020-10-18 2020-10-18 Outpatient [facility] [id number] 942 [place] 00:00:00 00:00:[address] 2020-09-26 2020-09-26 Outpatient [facility] [id number] [place] 00:00:00 00:00:[address] 2020-09-17 2020-09-17 Outpatient BARRY [facility] [id number] [place] 00:00:00 00:00:00 MARCIO [address] 2020-07-30 2020-07-30 Outpatient [facility] [id number] [facility] 2020-06-21 2020-06-21 Outpatient [facility] [id number] [facility] 2020-06-21 2020-06-21 Outpatient [facility] [id number] [facility] 2020-03-20 2020-03-20 Outpatient BARRY, [facility] [id number] [address] [place] [address] 00:00:00 00:00:00 MARCIO [address] 2020-03-04 2020-03-04 [facility] [id number] 12:31:00 12:31:00 t Dickey Dickey GHash.IO Luke s - [facility] l Medicine Outpati ent Clinics 2020-02-27 2020-02-27 [facility] [id number] 10:40:00 10:40:00 t Dickey Daleeli Luke s - Drive [facility] l Medicine Outpati ent Clinics 2019-12-28 2019-12-28 [facility] [id number] 08:00:00 08:00:[address] Luke s - Drive [facility] l Medicine Outpati ent Clinics 2019-12-13 2019-12-13 [facility] [id number] 16:26:00 16:26:00 t Dickey Dickey GHash.IO Luke s - Drive [facility] l Medicine Outpati ent Clinics 2019-11-03 2019-11-03 [facility] [id number] 16:37:00 16:37:00 t [employer] s - GHash.IO [facility] Medicine Medicine Outpati ent Clinics 2019-10-19 2019-10-19 Outpatient ERICA [facility] [id number] [place] 00:00:00 00:00:00 VERONICA [address] 2019-09-30 2019-09-30 [facility] [id number] 09:53:00 09:53:00 t [employer] s - GHash.IO [facility] Medicine Outpati ent Clinics 2019-09-29 2019-09-29 Outpatient APRYL [facility] [id number] 867 [place] 00:00:00 00:00:00 EDWARD [address] 2019-09-28 2019-09-28 [facility] [id number] 09:40:00 09:40:00 t [employer] s - GHash[employer]IO [facility] Medicine Outpati ent Clinics 2019-08-02 2019-08-02 Emergency E MHBL MHBL [id number] [facility]BL 13:09:00 13:09:00 2019-08-02 2019-08-02 Outpatient MHBL PUL [id number] [facility] 07:24:00 07:24:00 2019-07-01 2019-07-01 [facility] [id number] 09:57:00 09:57:00 t [employer] s - GHash.IO [facility] l Medicine Outpati ent Clinics 2019-06-20 2019-06-20 [facility] [id number] 11:09:00 11:09:00 t Dickey [employer] s - GHash[employer]IO [facility] Medicine Medicine Outpati ent Clinics 2019-06-16 2019-06-16 [facility] [id number] 10:40:00 10:40:00 t Dickey [employer] s - Drive [facility] Medicine l Medicine Outpati ent Clinics 2019-06-03 2019-06-03 [facility] [id number] 10:33:00 10:33:00 t Dickey [employer] s - Drive [facility] l Medicine Outpati ent Clinics 2019-03-16 2019-03-16 [facility] [id number] 09:40:00 09:40:00 t Dickey [employer] s Pongr [facility] Medicine Medicine Outpati ent Clinics 2018-12-15 2018-12-15 [facility] [id number] 08:40:00 08:40:00 t [employer] s Pongr [facility] Medicine Outpati ent Clinics 2018-09-16 2018-09-16 [facility] [id number] 10:00:00 10:00:00 t Yakarouler [facility] Medicine Medicine Outpati ent Clinics 2018-09-09 2018-09-09 [facility] [id number] 08:15:00 08:15:00 t Yakarouler [facility] Medicine Outpati ent Clinics 2018-08-31 2018-08-31 [facility] [id number] 10:15:00 10:15:00 t Yakarouler [facility] Medicine Outpati ent Clinics 2018-08-25 2018-08-25 [facility] [id number] 10:51:00 10:51:00 t Yakarouler [facility] Medicine Medicine Outpati ent Clinics 2018-07-01 2018-07-01 [facility] [id number] 10:31:00 10:31:00 t Yakarouler [facility] Medicine Outpati ent Clinics 2018-06-09 2018-06-09 [facility] [id number] 10:10:00 10:10:00 t [employer] s Pongr [facility] Medicine Outpati ent Clinics 2018-06-07 2018-06-07 [facility] [id number] 14:30:00 14:30:00 t Yakarouler [facility] Medicine Outpati ent Clinics Results Test Description Test Time Test Comments Results Result Comments Source POC glucose 2020-10-24 08:03:38 Test Item Value Reference Range Interpretation Comme nts POC glucose (test code = 164 mg/dL 65-99 H Ope rator Name: Torres Borjas [id number]) ID: [id number] hartable: [facility] Notified water fitness instructor Interpretation (test code = Abnormal 83109-6) Catracho MethodistXR Chest 1 Vw [id number] 06:27:56Hm Interface, Radiology Results Incoming - 10/24/2020 6:30 AM CSTEXAMINATION: XR CHEST 1 VW PORTABLECLINICAL HISTORY: resp insufficiencyCOMPARISON: 10/23/2020IMPRESSION:Moderate heterogeneous bilateral lung parenchymal opacities are stable.No pleural fluid or pneumothorax is seen.Heart size is within normal limits. Aortic tortuosity and calcification are again noted.The bones are osteopenic.There is no radiographic change.[id number] Urinalysis screen and microscopy, with reflex to [id number] 04:23:30 Test Item Value Reference Range Interpretation Comments Specimen site (test Catheterized code = 6236159) Color, UA (test code = Straw 5778-6) Appearance, UA (test Clear code = 5767-9) Specific gravity, UA S3.000 1.001-1.035 H (test code = 5811-5) pH, UA (test code = 6.0 5.0-8.5 5803-2) Protein, UA (test code 1+ Negative A = 67891-5) Glucose, UA (test code Negative Negative = 42193-6) Ketones, UA (test code Negative Negative = 2514-8) Bilirubin, UA (test Negative Negative code = 5770-3) Blood, UA (test code = Small Negative A 5794-3) Nitrite, UA (test code Negative Negative = 5802-4) Urobilinogen, UA (test <2.0 <2.0 code = 89890-6) Leukocyte esterase, UA Negative Negative (test code = 5799-2) Epithelial cells, UA <1 See_Comment [Autom ated (test code = 5787-7) message ] The system which generated this result transmitted reference range : /HPF. The refer ence range was not u sed to interpret th is result as normal/abnormal . WBC, UA (test code = 4 See_Comment [Autom ated 5821-4) message] The sy stem which generated this result transmitted reference range : 0 - 4 /HPF. The reference range was not used to interpret this result as normal/abnormal . RBC, UA (test code = 4 See_Comment [Autom ated 11266-0) message] The sy stem which generated this result transmitted reference range : 0 - 5 /HPF. The reference range was not used to interpret this result as normal/abnormal . Bacteria, UA (test None seen None seen code = 74261-1) Yeast, UA (test code = None seen 66634-3) Yeast with None seen pseudohyphae, UA (test code = 83843-0) Lab Interpretation Abnormal (test code = 41110-8) [place] MethodistIonized [id number] 03:05:28 Test Item Value Reference Range Interpretation Comments pH (test code = 2753-2) 7.48 Ionized calcium (test code = 1.11 mmol/L 1.11-1.32 ) [place] MethodistBasic metabolic [id number] 02:12:39 Test Item Value Reference Range Interpretation Comments Sodium (test code = 135 See_Comment [Automa sharita message] 5931-2) The system [employer] generated this result transmit sharita reference range : 135 - 148 mEq/L. Th e reference range was not used to interpret this result as normal/abnormal . Potassium (test code = 3.6 See_Comment [Aut omated message] 9553-3) The system [employer] generated this result transmit sharita reference range : 3.5 - 5.0 mEq/L. Th e reference range was not used to interpret this result as normal/abnormal . Chloride (test code = 103 See_Comment [Auto mated message] 2074-0) The system [employer] generated this result transmit sharita reference range : 98 - 112 mEq/L. Th e reference range was not used to interpret this result as normal/abnormal . CO2 (test code = 21 See_Comment L [Automated message] 2028-05) The system [employer] generated this result transmit sharita reference range : 24 - 31 mEq/L. The reference range was not used to interpret this result as normal/abnormal . Anion gap (test code = 11@ANIO See_Comment [Aut omated message] 40113-6) The system [employer] generated this result transmit sharita reference range : 7 - 15 mEq/L. The reference range was not used to interpret this result as normal/abnormal . BUN (test code = 13 mg/dL 8-23 3094-0) Creatinine (test code = 0.82 mg/dL 0.5-0.9 2160-0) Glucose (test code = 173 mg/dL 65-99 H 2345-7) Calcium (test code = 8.3 mg/dL 8.8-10.2 L 03532-6) Lab Interpretation Abnormal (test code = 13550-2) [place] MethodistHepatic function [id number] 02:12:39 Test Item Value Reference Range Interpretation Comments Albumin (test code = 2.5 g/dL 3.5-5 L 1751-7) Total bilirubin (test 0.3 mg/dL 0-1.2 code = 1974-) Bilirubin direct (test <0.2 0-0.3 code = 1968-03) Alkaline phosphatase 127 U/L 35-104 H (test code = 6768-6) Protein (test code = 5.8 g/dL 6.3-8.3 L -[place] n 2885-2) 4.6-7.0 g /dL1 week 4.4-7.6 g/dL 7 months-1year 5.1-7.3 g/dL 1-2 years 5.6-7.5 g/dL>3 years 6.0-8.0 g/wI74-163 6.3-8. 3 g/dL ALT (test code = 1742-6) 18 U/L 5-50 AST (test code = 1920-8) 14 U/L 10-35 Lab Interpretation (test Abnormal code = 46266-3) [place] MethodistMagnesium [id number] 02:12:39 Test Item Value Reference Range Interpretation Comments Magnesium (test code = 68021-5) 2.8 mg/dL 1.6-2.4 H Lab Interpretation (test code = Abnormal 27760-6) [place] MethodistEstimated [id number] 02:12:38 Test Item Value Reference Range Interpretation Comments Estimated GFR (test 66 mL/min/1.73 m2 Caterg or Units code = 5488) InterpretationG 1 >=90 Normal or highG2 60-89 Mildly gjwpqlmswS4s 45-59 Mildly to mode rately hbkjehtneH9c 30-44 Moderately to severely decreasedG4 15-29 Severely decre asedG5 <15 Kidn ey failureThe eGFR was calculated bonita chino the Chronic Kidney Disease Epidemiology Co llaboration (CKD-EPI) equat ion. Interpretation is based on recommendations of the National Kidney Foundation-Kidn ey Disease Outcomes Qualit y Initiative (NKF-KDOQI) pub lished in 2014. [place] MethodistPhosphorus [id number] 02:12:36 Test Item Value Reference Range Interpretation Comments Phosphorus (test code = 2777-1) 3.8 mg/dL 2.4-4.5 [place]den MethodistCBC with platelet and [id number] 01:50:04 Test Item Value Reference Range Interpretation Comments WBC (test code = 19.66 See_Comment H [Automated message] 97287-1) The system [employer] generated this result transmit sharita reference range : 4.50 - 11.00 k/ uL. The reference r ky was not used to interpret this result as normal/abnormal . RBC (test code = 3.52 m/uL 4.2-5.5 L 38399-8) HGB (test code = 718-7) 10.3 g/dL 12-16 L HCT (test code = 4544-3) 31.7 % 37-47 L MCV (test code = 787-2) 90.1 fL 82-100 MCH (test code = 785-6) 29.3 pg 27-34 MCHC (test code = 786-4) 32.5 g/dL 31-37 RDW - SD (test code = 43.1 fL 37-55 71424-9) MPV (test code = 9.4 fL 8.8-13.2 27596-9) Platelet count (test 142 See_Comment L [Autom ated message] code = 68334-8) The system [employer] [facility] generated this result transmit sharita reference range : 150 - 400 k/uL. The reference range was not used to interpret this result as normal/abnormal . Nucleated RBC (test code 0.00 See_Comment [A utomated message] = 46336-4) The system [employer] generated this result transmit sharita reference range : /100 WBC. The reference range was not used to interpret this result as normal/abnormal . Neutrophils (test code = 92.5 % 39-69 H 57578-8) Lymphocytes (test code = 4.5 % 25-45 L 83038-9) Monocytes (test code = 0.7 % 0-10 54002-4) Eosinophils (test code = 0.0 % 0-5 86387-0) Basophils (test code = 0.2 % 0-1 54467-2) Immature granulocytes 2.1 % 0-1 H "Immat ure (test code = 73317-3) granul ocytes" (promyelocytes, myelocytes, metamyelocytes) Lab Interpretation (test Abnormal code = 95374-8) [place] [facility] [id number] 01:49:45 Test Item Value Reference Range Interpretation Comments Urine culture (test SEE COMMENT Bacteriu shila screen code = 3859353) negative. [facility] Chest W Contrast Abdomen W Contrast Pelvis W [id number] 21:13:33Hm Interface, Radiology Results 10/23/2020 9:16 PM CSTEXAMINATION: CT ANGIOGRAM CHEST ABDOMEN PELVIS W AND OR WITHOUT CONTRASTCLINICAL HISTORY: TAAA with concern for ruptureTECHNIQUE: Multiple CT angiographic images of the chest, abdomen, and pelvis were obtained during intravenous administration of contrast. Multiple computerized reformatted images as well as 3-D volume rendered imageswere also obtained.CT imaging was performed with iterative reconstruction techniques and/or automated exposure control to reduce radiation dose.COMPARISON: CT of the abdomen and pelvis from [facility] [place] dated 11/02/2020.FINDINGS:CHEST:Lungs and airways: There is a heterogeneous nodule with irregular margins of the right upper lobe on series 4 image 16 measuring 1.7 x 2.2 cm. There are additional scattered nodules in the lungs bilaterally. 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 Heterogeneous soft tissue density extends medially along the superior margin of the aneurysm. Cardiovascular: The heart is within normal limits of size. No pericardial effusion is identified. There are multivessel coronary artery complications. Other:ABDOMEN:Liver: The liver is normal. No focal mass.Gallbladder/Biliary: The gallbladder is normal. There is no evidence of intra or extrahepatic biliary ductal dilatation.Spleen: The spleen is not enlarged.Pancreas: There is moderate atrophy of the pancreatic parenchyma.Adrenal Glands: The adrenal glands are unremarkable.Kidneys: The kidneys are mildly atrophic bilaterally. No obstructing stones or hydronephrosis identified in either kidney. Thereis a partially exophytic 1 cm heterogeneously enhancing lesion from the upper pole the left kidney as seen on series 6 image 84.Nodes: No enlarged retroperitoneal or mesenteric lymphadenopathy.Bowel: No bowel obstruction or inflammatory changes.Ascites/fluid collections: No ascites or fluid collections.PELVIS:The bladder is decompressed by a Rojas catheter. MUSCULOSKELETAL: There is an old healed fracture of the left inferior pubic ramus. There are severe degenerative changes in the lumbar spine. There are numerous anterior compression deformities in the thoracic spine including T7, T9, and T12 which are of indeterminate age. CTA: The aortic root is approximately 3.1 cm in diameter. At the level of the pulmonary artery trunk the ascending thoracic aorta is 3.3 x 3.4 cm in cross- sectional dimensions. The transverse aorta is 2.7 cm in diameter. The level of the pulmonary artery trunk the descending thoracic aorta is 2.7 x 2.9 cm.The distal descending thoracic aorta at the level of the diaphragmatic hiatus is focally tortuous as seen on series 302B image 64. At this region there is an area of mild luminal narrowing. Just distal to this level there is a predominantly fusiform shaped aneurysm which is 4.1 x 5.8 cm in size and extending along the length of approximately 7.3 cm.The distal esophagusis displaced anteriorly by the aneurysm and there is partial herniation of abdominal fat through an adjacent hiatal hernia.There is no evidence of active extravasation from the aneurysm the delayed images. Soft tissue density along the superior left side of the aneurysm is similar in size and appearance compared to CT from the same day at 2:33 PM.No dissection flap is identified in the thoracic aorta. There are moderate atherosclerotic ossifications throughout the thoracic aorta. The branching pattern of the great arteries as they arise from the aortic arch is.The abdominal aorta is patent. Severe atherosclerotic ossifications are present throughout the abdominal aorta. No dissection flap is identified in the abdominal aorta.There are severe atherosclerotic ossifications of the origin of the superior mesenteric artery which is moderately narrowed at its origin. 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 Within this limitation no active contrast extravasation is identified. Soft tissue density most prominent along the superior left side of the aneurysm could reflect hematoma of indeterminate age. Other differential considerations include site of disease treatment related to the patient's lung cancer, lymphadenopathy, and lung parenchymal process.3.Centrilobular emphysema.4.Pulmonary nodules may be related to patient's history of lung cancer. Additional patchy consolidative changes in the lung bases may reflect site of disease or infectious/inflammatory process.Findings were discussed with and acknowledged by the nurse taking care of thepatientKrysten at 10/23/2020 9:10 PM. [id number] Head External [id number] 20:14:56This exam was not acquired at a [facility] facility and has not been interpreted by a [facility] Provider. The exam was imported into our imaging system.[facility] Chest Abdomen Pelvis External [id number] 20:14:25This exam was not acquired at a [facility] facility and has not been interpreted by a [facility] Provider. The exam was imported into our imaging system.[facility] Abd/Pelvic External Study 2020-10-23 20:14:04This exam was not acquired at a [facility] facility and has not been interpreted by a [facility] Provider. The exam was imported into our imaging system.[place] MethodistXR Chest External [id number] 20:11:56This exam was not acquired at a [facility] facility and has not been interpreted by a [facility] Provider. The exam was imported into our imaging system.[place] MethodistType and [id number] 20:00:00 Test Item Value Reference Range Interpretation Comments ABO grouping (test code = 883-9) O Rh type (test code = 68807-7) POS Antibody screen (gel) (test code = NEG 890-4) [place] [facility] MethodistLipase [id number] 19:07:35 Test Item Value Reference Range Interpretation Comments Lipase (test code = 3040-3) 22 U/L 13-60 [place] MethodistAmylase [id number] 19:07:33 Test Item Value Reference Range Interpretation Comments Amylase (test code = 1798-8) 96 U/L 28-100 [place] MethodistLactic acid [id number] 19:04:04 Test Item Value Reference Range Interpretation Comments Lactic acid (test code = 33986-8) 2.1 mmol/L 0.5-2.2 [facility] MethodistPartial thromboplastin time, [id number] 18:50:11 Test Item Value Reference Range Interpretation Comments PTT (test code = 30.1 See_[place] [address]-4) unfractionated heparin is61.0-112.0 se conds which corresponds to Anti-Xa0.3-0.7 U/ml. [Automat ed message] The system whic h generated this result tra nsmitted reference range : 23.0 - 36.0 sec. The refere nce range was not used to int erpret this result as chris l/abnormal. [facility] MethodistProthrombin time with [id number] 18:50:02 Test Item Value Reference Range Interpretation Comments Prothrombin time (test 14.1 See_Comment [Aut omated message] The code = 5902-2) system which generated this result tra nsmitted reference range : 11.5 - 14.5 sec. The r eference range was not u sed to interpret this result as normal/abnormal . INR (test code = 1.1 The Interna tional 16747-0) Normalized Rati o (INR) is a therapeutic m onitoring tool for patien ts who are stable on oral anticoagulant t herapy. An INR of 2.0-3.0 is suggested for d eep vein thrombosis/pulm onary embolism. [facility] MethodistArterial Line [id number] 18:49:52Alexis Kang NP 10/23/2020 6:50 PMArterial Line Insertion Date/Time: 10/23/2020 6:50 PMPerformed by: Alexis Kang NPAuthorized by: Alexis Kang NP Consent: Consent obtained: Verbal Consent given by: Patient Risks discussed: Bleeding, infection, ischemia, pain and repeat procedureUniversal protocol: Immediately prior to procedure a time outwas called: yes Patient identity confirmed: Arm band, hospital-assigned identification number and verbally with patientIndications: Indications: hemodynamic monitoring Pre-procedure details: Skin preparation: 2% Chlorhexidine Preparation: Patient was prepped and draped in sterile fashion Anesthesia (see MAR for exact dosages): Anesthesia method: Local infiltration Local anesthetic: Lidocaine 1% w/o epiProcedure details: Location: R radial Delvis's test performed: yes Delvis's test abnormal: no Needle gauge: 20 G Placement technique: Seldinger Ultrasound guidance: yesUltrasound guidance: images not saved electronically Number of attempts: 1 Transducer: waveform confirmed Post-procedure details: Post-procedure: Secured with tape, sterile dressing applied and sutured CMS: Normal Patient tolerance of procedure: Tolerated well, no [facility] 2020-10-23 18:36:44 Test Item Value Reference Range Interpretation Comments WBC (test code = 19.96 See_Comment H [Automated message] 51077-8) The system [employer] generated this result transmit sharita reference range : 4.50 - 11.00 k/ uL. The reference r ky was not used to interpret this result as normal/abnormal . RBC (test code = 3.80 m/uL 4.2-5.5 L 90788-2) HGB (test code = 718-7) 11.3 g/dL 12-16 L HCT (test code = 4544-3) 34.6 % 37-47 L MCV (test code = 787-2) 91.1 fL 82-100 MCH (test code = 785-6) 29.7 pg 27-34 MCHC (test code = 786-4) 32.7 g/dL 31-37 RDW - SD (test code = 44.0 fL 37-55 43737-1) MPV (test code = 9.1 fL 8.8-13.2 72209-5) Platelet count (test 157 See_Comment [Autom ated message] code = 21219-4) The system [employer] generated this result transmit sharita reference range : 150 - 400 k/uL. The reference range was not used to interpret this result as normal/abnormal . Nucleated RBC (test code 0.00 See_Comment [A utomated message] = 84429-3) The system [employer] generated this result transmit sharita reference range : /100 WBC. The reference range was not used to interpret this result as normal/abnormal . Lab Interpretation (test Abnormal code = 70109-8) [facility] DuongEC 12 [id number] 15:50:34 Test Item Value Reference Range Interpretation Comments Ventricular rate (test 70 code = 253) Atrial rate (test code 70 = 255) NV interval (test code 196 = 266) QRSD interval (test 84 code = 260) QT interval (test code 410 = 264) QTC interval (test code 442 = 265) P axis 1 (test code = 48 267) QRS axis 1 (test code = 18 268) T wave axis (test code 41 = 270) EKG impression (test Normal sinus code = 273) rhythm-Normal ECG-In automated comparison with ECG of 31-MAY-2019 14:46,-No significant change was found- [facility] Duong
--- NOTE | 2020-10-24 11:55 | EKG ---
Test Date: 2020-10-23 Test Time: 14:07:20 Headwaiter/Headwaitress: SAL MEASUREMENT RESULTS: Intervals: Rate: 89 MA: 150 QRSD: 80 QT: 374 QTc: 455 [place]: P: 11 MA: 150 QRS: -4 T: 4 INTERPRETIVE STATEMENTS: Normal sinus rhythm Minimal voltage criteria for LVH, may be normal variant Cannot rule out Inferior infarct, age undetermined Abnormal ECG Compared to ECG 09/12/2020 12:19:11 Left ventricular hypertrophy now present Myocardial infarct finding now present Electronically Signed On 10-24-20 11:53:34 BUSINESS ANALYTICS INTERN by Bharat Loaiza
== END 2020-10-23 17:17 | disposition short-term general hospital (02) ==
LOC: ER 13:50
DX: I71.1 Thoracic aortic aneurysm, ruptured (principal); Z20.822 Contact with and (suspected) exposure to COVID-19; I10 Essential (primary) hypertension; Z88.0 Allergy status to penicillin; Z91.048 Other nonmedicinal substance allergy status
CPT/HCPCS: 87088; 85025; 87086; 80048; 36415; 80076; 84484; 83690; 76377; 74176; 71045; U0003; J2270 ×2; J2185; J7050; J2405; 51702; 81003; 81015; 87077; 87186; 93005; 99285

== ENCOUNTER 2020-10-26 08:24 | Emergency (ER) | payer OTHER ==
[2020-10-26] MEDS ORDERED: ONDANSETRON 4 MG/2 ML VIAL ONE (08:55)
[2020-10-26] MEDS ORDERED: MORPHINE 4 MG/ML SYR ONE (08:55)
[2020-10-26 09:03] LABS: Absolute Lymphocytes (CBC) 1.5 K/uL (0.7-4.9); Basophils % 0.5 % (0-1.3); Hematocrit 32.6 % (36.0-45.0); Lymphocytes % 10.2 % (15.3-44.8); MPV 7.5 fL (7.6-11.3); Protime INR 1.04; RBC Red Blood Cell Count 3.68 M/uL (3.86-4.86)
[2020-10-26] MEDS ORDERED: METHYLPREDNISOLONE 125 MG INJ ONE (09:10)
[2020-10-26] MEDS ORDERED: DIPHENHYDRAMINE 50 MG/ML VIAL ONE (09:10)
[2020-10-26 09:26] LABS: ALT/SGPT 24 U/L (12-78); AST/SGOT 16 U/L (15-37); Albumin 2.6 g/dL (3.4-5.0); Alkaline Phosphatase 126 U/L (45-117); BUN Blood Urea Nitrogen 18 mg/dL (7-18); Bicarbonate 28 mmol/L (21-32); Bilirubin Direct 0.1 mg/dL (0-0.2); Bilirubin Total 0.4 mg/dL (0.2-1.0); Glucose Level 93 mg/dL (74-106); Magnesium 1.7 mg/dL (1.8-2.4); NT PRO-BNP 1056 pg/mL (<450); Sodium Level 141 mmol/L (136-145); Troponin (Emerg Dept Use Only) < 0.02 ng/mL (0.0-0.045)
--- NOTE | 2020-10-26 09:29 | RAD REPORT ---
EXAM DESCRIPTION: CT - Angio Aorta For Dissection - 10/26/2020 9:11 am CLINICAL HISTORY: Chest and abdominal pain COMPARISON: CT chest May 2020 CT abdomen October 23, 2020 TECHNIQUE: Computed tomography angiography of the chest, abdomen pelvis were obtained. 100 cc Isovue 370 was administered intravenously. Coronal and sagittal reconstruction were performed. MIP 3D reconstruction was performed All CT scans are performed using dose optimization technique as appropriate and may include automated exposure control or mA/KV adjustment according to patient size. FINDINGS: A 7.5 x 5.9 centimeter ( cc by AP) thoracoabdominal aortic aneurysm is mildly enlarged fr om the April 2020 exam in which it measured 7.3 x 5.7 centimeters. The fluid surrounding the aorta h as increased since the October 23, 2020 exam. 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 Moderate plaque is present within the proximal SMA. The a rtery is mildly to moderately narrowed. The JUANCHO is patent. Spinal compression deformities unchanged Bibasilar lung atelectasis is present. A mild to moderate ground-glass opacities within the right neisha g. An additional 2 centimeter right upper lobe opacity. 1 The liver,spleen, pancreas adrenals kidneys demonstrate no significant abnormality. No evidence of diverticulitis. 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 The amount of fluid surrounding t he aneurysm has increased since October 23, 2020. This probably represents leakage from the aneurysm Mild to moderate ground-glass opacities right lung probably pneumonia or pneumonitis The exam was discussed with Dr. Alvarez in the Emergency Room A 2 centimeter right upper lobe opacity may represent pneumonia or neoplasm and can be monitored on s ubsequent examination
--- NOTE | 2020-10-26 09:32 | RAD REPORT ---
EXAM DESCRIPTION: Catherine Single View10/26/2020 9:01 am CLINICAL HISTORY: Abdominal pain COMPARISON: October 23, 2020 FINDINGS: Mild to moderate right lung opacities have developed. This probably represents pneumonia. Mild left basilar atelectasis. Heart remains enlarged. Large thoracoabdominal aortic aneurysm again seen
[2020-10-26 09:41] LABS: Blood Morphology Comment NOT SEEN (NOT SEEN); Platelet Estimate ADEQ
[2020-10-26 10:54] LABS: SARS-COV-2 RT PCR NEGATIVE (NEGATIVE)
--- NOTE | 2020-10-26 11:20 | EDPHYS ---
Physician Documentation [facility] Name: Adrián Mak Age: 85 yrs Sex: Female : 1935 Arrival Date: 10/26/2020 Time: 08:28 Bed 18 Private MD: ED Physician Rao Alvarez HPI: 10/26 10:15 This 85 yrs old Female presents to ER via EMS with complaints of Flank Pain. kdr 10:16 The patient presents with abdominal pain Right flank. Onset: The symptoms/episode kdr began/occurred suddenly, just prior to arrival. The symptoms radiate to anterior aspect of right upper chest, right breast, right upper quadrant and right lower quadrant. Associated signs and symptoms: Pertinent positives: nausea. The symptoms are described as achy, sharp, stabbing. Modifying factors: The symptoms are alleviated by nothing, the symptoms are aggravated by nothing. Severity of pain: At its worst the pain was severe incapacitating just prior to arrival, in the emergency department the pain is unchanged. The patient has experienced a previous episode. 10:23 The patient has been recently seen by a physician:. The patient presented here on 10/23 kdr for flank pain and was thought to have a leaking AAA. The patient was flown to [facility] where she was re-scanned and thought to have a stable non-ruptured or leaking AAA and was discharged. 12:14 The patient was on the toilet this morning attempting to have a bowel movement when she kdr had sudden onset of the same pain as when she initially presented on the . Historical: - Allergies: 08:41 Iodine; ph 08:41 PENICILLINS; ph - PMHx: 08:41 Hypertension; AAA; Cancer, Lung; ph - Immunization history:: Adult Immunizations up to date. - Social history:: Smoking status: Patient denies any tobacco usage or history of. ROS: 12:14 Constitutional: Negative for fever, chills, and weight loss, Eyes: Negative for injury, kdr pain, redness, and discharge, Neck: Negative for injury, pain, and swelling, Cardiovascular: Negative for chest pain, palpitations, and edema, Respiratory: Negative for shortness of breath, cough, wheezing, and pleuritic chest pain, : Negative for injury, bleeding, discharge, and swelling, MS/Extremity: Negative for injury and deformity, Skin: Negative for injury, rash, and discoloration, Neuro: Negative for headache, weakness, numbness, tingling, and seizure activity. Psych: Negative for depression, anxiety, suicide ideation, homicidal ideation, and hallucinations, Allergy/Immunology: Negative for hives, rash, and allergies, Endocrine: Negative for neck swelling, polydipsia, polyuria, polyphagia, and marked weight changes, Hematologic/Lymphatic: Negative for swollen nodes, abnormal bleeding, and unusual bruising. 12:14 Abdomen/GI: Positive for Right flank pain. Exam: 11:55 ECG was reviewed by the Attending Physician. kdr 12:14 Constitutional: This is a well developed, well nourished patient who is awake, alert, kdr and in no acute distress. Head/Face: Normocephalic, atraumatic. Eyes: Pupils equal round and reactive to light, extra-ocular motions intact. Lids and lashes normal. Conjunctiva and sclera are non-icteric and not injected. Cornea within normal limits. Periorbital areas with no swelling, redness, or edema. Neck: Trachea midline, no thyromegaly or masses palpated, and no cervical lymphadenopathy. Supple, full range of motion without nuchal rigidity, or vertebral point tenderness. No Meningismus. Chest/axilla: Normal chest wall appearance and motion. Nontender with no deformity. No lesions are appreciated. Cardiovascular: Regular rate and rhythm with a normal S1 and S2. No gallops, murmurs, or rubs. Normal PMI, no JVD. No pulse deficits. Respiratory: Lungs have equal breath sounds bilaterally, clear to auscultation and percussion. No rales, rhonchi or wheezes noted. No increased work of breathing, no retractions or nasal flaring. Back: No spinal tenderness. No costovertebral tenderness. Full range of motion. Skin: Warm, dry with normal turgor. Normal color with no rashes, no lesions, and no evidence of cellulitis. MS/ Extremity: Pulses equal, no cyanosis. Neurovascular intact. Full, normal range of motion. Neuro: Awake and alert, GCS 15, oriented to person, place, time, and situation. Cranial nerves II-XII grossly intact. Motor strength 5/5 in all extremities. Sensory grossly intact. Cerebellar exam normal. Normal gait. Psych: Awake, alert, with orientation to person, place and time. Behavior, mood, and affect are within normal limits. 12:14 Abdomen/GI: Inspection: obese Bowel sounds: active, all quadrants, Palpation: Vital Signs: 08:31 BP 144 / 80; Pulse 82; Resp 20; Temp 97.1; Pulse Ox 97% on R/A; ph 09:45 BP 117 / 65; Pulse 72; Resp 16; Pulse Ox 98% on R/A; ph 10:59 BP 127 / 67; Pulse 67; Resp 18; Pulse Ox 96% on R/A; ph 12:20 BP 118 / 59; Pulse 71; Resp 18; Temp 97.5; Pulse Ox 98% on R/A; ph MDM: 11:19 Patient medically screened. kdr 12:14 Data reviewed: vital signs, nurses notes, intermediate records, diagnostic data from kdr outside facility, old medical records, lab test result(s). Counseling: I had a detailed discussion with the patient and/or guardian regarding: the historical points, exam findings, and any diagnostic results supporting the discharge/admit diagnosis, lab results, radiology results, the need to transfer to another facility. 10/26 08:46 Order name: Basic Metabolic Panel; Complete Time: 09:32 kdr 10/26 08:46 Order name: CBC with Diff kdr 10/26 08:46 Order name: LFT's; Complete Time: 09:32 kdr 10/26 08:46 Order name: Magnesium; Complete Time: 09:32 kdr 10/26 08:46 Order name: NT PRO-BNP; Complete Time: 09:32 kdr 10/26 08:46 Order name: PT-INR; Complete Time: 09:32 kdr 10/26 08:46 Order name: Troponin (emerg Dept Use Only); Complete Time: 09:32 kdr 10/26 08:46 Order name: Type And Screen kdr 10/26 09:04 Order name: Manual Differential EDMS 10/26 09:42 Order name: COVID-19 : Document "Date of Symptom Onset" if Symptomatic. eb 10/26 09:42 Order name: Flu eb 10/26 09:55 Order name: ABO/RH no charge EDMS 10/26 08:46 Order name: XRAY Chest (1 view) kdr 10/26 08:46 Order name: EKG; Complete Time: 08:47 kdr 10/26 08:46 Order name: Cardiac monitoring; Complete Time: 08:51 kdr 10/26 08:46 Order name: EKG - Nurse/Tech; Complete Time: 09:41 kdr 10/26 08:46 Order name: IV Saline Lock; Complete Time: 08:51 kdr 10/26 08:46 Order name: Labs collected and sent; Complete Time: 08:51 kdr 10/26 08:46 Order name: O2 Per Protocol; Complete Time: 08:51 kdr 10/26 08:46 Order name: O2 Sat Monitoring; Complete Time: 08:51 kdr 10/26 09:05 Order name: Angio Aorta For Dissection; Complete Time: 09:32 EDMS 10/26 10:54 Order name: COVID-19/FLU A+B EDMS EC:55 Rate is 88 beats/min. Rhythm is regular, Sinus Rhythm with No ectopy. QRS [place] is kdr Normal. [place] interval is normal. QRS interval is normal. QT interval is normal. Clinical impression: NSR w/ Non-specific ST/T Changes. Administered Medications: 08:48 Drug: Zofran (Ondansetron) 4 mg Route: IVP; Site: left antecubital; ph 12:44 Follow up: Response: No adverse reaction ph 08:50 Drug: morphine 4 mg Route: IVP; Site: left antecubital; ph 09:15 Follow up: Response: No adverse reaction; Pain is decreased; RASS: Drowsy (-1) ph 09:05 Drug: Benadryl 25 mg Route: IVP; Site: left antecubital; ph 10:00 Follow up: Response: No adverse reaction ph 09:05 Drug: SOLU-Medrol 125 mg Route: IVP; Site: left antecubital; ph 10:00 Follow up: Response: No adverse reaction ph Disposition: 10/26/20 11:19 Transfer ordered to [facility]. Diagnosis are Abdominal aortic aneurysm, ruptured, Right flank pain. - Reason for transfer: Higher level of care. - Accepting physician is Pj. - Condition is Serious. - Problem is an acute exacerbation. - Symptoms have improved. Signatures: Dispatcher [employer] EDMS Rao Alvarez MD MD kdr Amy Key RN RN ph Corrections: (The following items were deleted from the chart) 09:05 08:47 Chest Angio+CT.RAD.BRZ ordered. EDMS EDMS 10:14 09:42 CORONAVIRUS ordered. EDMS EDMS 10:14 09:42 Influenza Screen (A ordered. EDMS EDMS 12:22 11:19 10/26/2020 11:19 Transfer ordered to [facility]. Diagnosis is Abdominal ph aortic aneurysm, ruptured; Right flank pain. Reason for transfer: Higher level of care. Accepting physician is Pj. Condition is Serious. Problem is an acute exacerbation. Symptoms have improved. kdr
--- NOTE | 2020-10-26 11:20 | ER ---
Nurse's Notes [facility] Name: Adrián Mak Age: 85 yrs Sex: Female : 1935 Arrival Date: 10/26/2020 Time: 08:28 Bed 18 Private MD: Diagnosis: Abdominal aortic aneurysm, ruptured;Right flank pain Presentation: 10/26 08:31 Chief complaint: EMS states: EMS initially called for "lung problem", upon arrival pt ph found to be c/o R flank pain, pt transferred to [facility] 2 days ago for AAA, pt reports that no surgery was done, states that pain is the same, VSS. Coronavirus screen: Client denies travel out of the [place] in the last 14 days. At this time, the client does not indicate any symptoms associated with coronavirus-19. The client reports previous COVID testing was negative. Ebola Screen: No symptoms or risks identified at this time. Initial Sepsis Screen: Does the patient meet any 2 criteria? No. Patient's initial sepsis screen is negative. Does the patient have a suspected source of infection? No. Patient's initial sepsis screen is negative. Risk Assessment: Do you want to hurt yourself or someone else? Patient reports no desire to harm self or others. Onset of symptoms was October 26, 2020. 08:31 Method Of Arrival: EMS: [facility] ph 08:31 Acuity: ELVI 3 ph Historical: - Allergies: 08:41 Iodine; ph 08:41 PENICILLINS; ph - PMHx: 08:41 Hypertension; AAA; Cancer, Lung; ph - Immunization history:: Adult Immunizations up to date. - Social history:: Smoking status: Patient denies any tobacco usage or history of. Screenin:00 Abuse screen: Denies threats or abuse. Denies injuries from another. Nutritional ph screening: No deficits noted. Tuberculosis screening: No symptoms or risk factors identified. Fall Risk None identified. Assessment: 08:35 General: Appears in no apparent distress. uncomfortable, Behavior is cooperative, ph appropriate for age, anxious, Denies fever. Pain: Complains of pain in anterior aspect of right lateral abdomen and right upper quadrant and anterior aspect of right upper chest. Neuro: Level of Consciousness is awake, alert, obeys commands, Oriented to person, place, time, situation. Cardiovascular: Reports chest pain, Chest pain is located in right anterior chest wall. Respiratory: Airway is patent Respiratory effort is even, unlabored. GI: No signs and/or symptoms were reported involving the gastrointestinal system. Derm: Skin is intact, Skin is pink, warm \\T\\ dry. Musculoskeletal: Circulation, motion, and sensation intact. Range of motion: intact in all extremities. 08:44 Reassessment: Urine culture result from previous visit: E.Coli and Strep Grp B. Dr. erna Alvarez was notified. . 09:30 Reassessment: Patient appears in no apparent distress at this time. Patient and/or ph family updated on plan of care and expected duration. Pain level reassessed. Patient is alert, oriented x 3, equal unlabored respirations, skin warm/dry/pink. Pt reports that pain has decreased. 10:30 Reassessment: Patient appears in no apparent distress at this time. Patient and/or ph family updated on plan of care and expected duration. Pain level reassessed. Patient is alert, oriented x 3, equal unlabored respirations, skin warm/dry/pink. 11:35 Reassessment: Patient appears in no apparent distress at this time. Patient and/or ph family updated on plan of care and expected duration. Pain level reassessed. Patient is alert, oriented x 3, equal unlabored respirations, skin warm/dry/pink. Report called to Lenore PRO at [facility], awaiting EMS for transport. 12:20 Reassessment: Patient appears in no apparent distress at this time. Patient and/or ph family updated on plan of care and expected duration. Pain level reassessed. Patient is alert, oriented x 3, equal unlabored respirations, skin warm/dry/pink. [facility] at bedside, report given to EMT-P. Vital Signs: 08:31 BP 144 / 80; Pulse 82; Resp 20; Temp 97.1; Pulse Ox 97% on R/A; ph 09:45 BP 117 / 65; Pulse 72; Resp 16; Pulse Ox 98% on R/A; ph 10:59 BP 127 / 67; Pulse 67; Resp 18; Pulse Ox 96% on R/A; ph 12:20 BP 118 / 59; Pulse 71; Resp 18; Temp 97.5; Pulse Ox 98% on R/A; ph ED Course: 08:28 Patient arrived in ED. ph 08:29 Rao Alvarez MD is Attending Physician. kdr 08:31 Amy Key, RN is Primary Nurse. ph 08:34 Triage completed. ph 08:45 Inserted saline lock: 18 gauge in left antecubital area, using aseptic technique. Blood ph collected. 08:54 T\\T\\S collected, blood band applied to patient. dh3 09:01 XRAY Chest (1 view) In Process Unspecified. EDMS 09:10 Angio Aorta For Dissection In Process Unspecified. EDMS 09:18 EKG done, by ED staff, reviewed by Rao Alvarez MD. dh3 09:25 initiated a transfer with Juana from the [facility]/ per Juana eb they are at capacity in the ICU and will have to decline the patient in transfer. 09:27 initiated a transfer with Debbie Palacio from the [facility]. eb 09:36 Per Debbie Palacio [facility] will have to decline the patient in transfer due to eb being at capacity. 09:38 initiated a transfer Roxie from the [facility]. eb 09:59 connected the thoracic surgeon donor relations manager for [facility] with Dr. Alvarez for eb patient transfer consultation. 10:10 called and connected the patient's vascular Surgeon Dr. Felotn Marcelino with eb Dr. Alvarez for patient consultation. 10:18 connected the thoracic surgeon donor relations manager for [facility] eb with Dr. Alvarez for patient transfer consultation. 10:[address] Oliva with Dr. Alvarez for patient consultation. eb 10:30 connected the supply chain buyer donor relations manager for [facility] with eb Dr. Alvarez for patient transfer consultation. 10:34 re-initiated a transfer with Juana from the [facility] as requested eb by Dr. Oliva. 11:00 Arm band placed on Patient placed in an exam room, on a stretcher, on nurse monitoring, ph on pulse oximetry. 11:01 Patient has correct armband on for positive identification. Placed in gown. Bed in low ph position. Call light in reach. Side rails up X2. quality assurance monitor final on. Pulse ox on. NIBP on. Door closed. Noise minimized. Lights dimmed. Warm blanket given. 11:07 connected the CV supply chain buyer donor relations manager for the [facility] with Dr. Alvarez for patient eb transfer consultation. 11:14 administrative approval given by Juana Valencia/ patient has been accepted to the eb [facility]/ Dr. Garnica has accepted the patient in transfer/ report to be called to [phone]. 12:21 No provider procedures requiring assistance completed. ph 12:21 Patient transferred, IV remains in place. ph Administered Medications: 08:48 Drug: Zofran (Ondansetron) 4 mg Route: IVP; Site: left antecubital; ph 12:44 Follow up: Response: No adverse reaction ph 08:50 Drug: morphine 4 mg Route: IVP; Site: left antecubital; ph 09:15 Follow up: Response: No adverse reaction; Pain is decreased; RASS: Drowsy (-1) ph 09:05 Drug: Benadryl 25 mg Route: IVP; Site: left antecubital; ph 10:00 Follow up: Response: No adverse reaction ph 09:05 Drug: SOLU-Medrol 125 mg Route: IVP; Site: left antecubital; ph 10:00 Follow up: Response: No adverse reaction ph Outcome: 11:19 ER care complete, transfer ordered by . kdr 12:21 Transferred by ground EMS [facility] to [facility], Transfer form ph completed. X-rays sent w/ patient. 12:21 Condition: stable 12:21 Instructed on the need for transfer. 12:22 Patient left the ED. ph Signatures: Dispatcher [employer] EDMS Rao Alvarez MD MD [facility] Milli Barba RN RN [phone] Amy Key RN RN Su French [facility] Debbie Armenta Corrections: (The following items were deleted from the chart) 10:18 09:59 connected the thoracic surgeon donor relations manager for [facility] with Dr. Alvarez for eb patient transfer consultation. eb
[2020-10-26 12:30] VITALS: BP 118/59; TEMP 97.5; O2SAT 98
--- NOTE | 2020-10-28 07:57 | EKG ---
Test Date: 2020-10-26 Test Time: 09:15:47 Plastics Seasoner Operator: IBRAHIMA MEASUREMENT RESULTS: Intervals: Rate: 88 ME: 172 QRSD: 82 QT: 376 QTc: 454 [place]: P: 33 ME: 172 QRS: 24 T: 61 INTERPRETIVE STATEMENTS: Sinus rhythm with premature atrial complexes Low voltage QRS Borderline ECG Compared to ECG 10/23/2020 14:07:20 Atrial premature complex(es) now present Low QRS voltage now present Left ventricular hypertrophy no longer present Myocardial infarct finding no longer present Electronically Signed On 10-28-20 07:53:34 SURGICAL RN by Bharat Loaiza
== END 2020-10-26 12:22 | disposition short-term general hospital (02) ==
LOC: ER 08:24
DX: I71.3 Abdominal aortic aneurysm, ruptured (principal); I10 Essential (primary) hypertension; Z20.822 Contact with and (suspected) exposure to COVID-19; Z88.0 Allergy status to penicillin; Z85.118 Personal history of other malignant neoplasm of bronchus and lung; Z91.048 Other nonmedicinal substance allergy status
CPT/HCPCS: 93005; 85025; 80048; 36415; 86900; 83735; 86850; 85610; 86901; 80076; 84484; 83880; 0240U; 71275; 74175; 71045; 96375; 96374; 99285; Q9967; J1200; J2930; J2405